=== PATIENT | female | born 1945 | race Caucasian/White ===

== ENCOUNTER 2017-11-29 11:41 | Emergency (ER) | payer MEDICARE, OTHER, SELFPAY ==
[2017-11-29 11:42] VITALS: BP 118/72; PULSE 76; RESP 16; TEMP 37.1; O2SAT 95; BMI 25.6
[2017-11-29 11:57] VITALS: O2SAT 97
[2017-11-29 12:20] LABS: Absolute Lymphocyte Count 1.77 X10^3/ul (0.83-4.51); Basophil# 0.03 X10^3/uL; Basophil% 0.4 % (0-1); Eosinophil# 0.12 X10^3/uL; Eosinophils% 1.6 % (0-5); Hematocrit 45.6 % (37-47); Hemoglobin 15.1 g/dl (12.0-15.0); Lymphocyte # 1.77 X10^3/ul (4.0); Lymphocyte % 23.3 % (19-41); Mean Corp Hgb Conc 33.1 g/gl (32-36); Mean Corpuscular Hgb 30.4 pg (27.0-32.0); Mean Corpuscular Volume 91.9 fL (81-99); Mean Platelet Vol. 10.1 fl (6.2-12.0); Monocyte# 0.63 X10^3/uL; Monocyte% 8.3 % (0-10); Neutrophil # 5.04 X10^3/uL (2.7-7.7); Neutrophil % 66.3 % (47-70); POSITIVE COUNT NO; POSITIVE DIFFERENTIAL NO; POSITIVE MORPHOLOGY NO; Platelet Count 242 K/mm3 (150-450); RBC Distribution Width CV 13.2 % (11.6-14.6); RBC Distribution Width SD 43.8 fl (35.1-43.9); Red Blood Count 4.96 M/mm3 (4.2-5.4); White Blood Count 7.6 K/mm3 (4.4-11.0)
[2017-11-29 12:36] LABS: Anion Gap 10 (5-15); BUN 16 mg/dL (7-18); BUN/Creat Ratio 17.1 RATIO (10-20); Calcium,Total 9.4 mg/dL (8.5-10.1); Chloride 105 mmol/L (98-107); Creatinine, Serum 0.93 mg/dL (0.55-1.02); EST Glomerular Filtration Rate 63 mL/min (>60); Est Glom Filt Rate - Afr Amer 76 mL/min (>60); Glucose 83 mg/dL (74-106); Potassium 4.7 mmol/L (3.5-5.1); Sodium Level 139 mmol/L (136-145)
[2017-11-29] MEDS: 0.9% Normal Saline 1,000 ML 1000 ML IV (12:55)
[2017-11-29 12:56] VITALS: BP 112/70; PULSE 80; RESP 14; O2SAT 98
[2017-11-29 13:28] VITALS: BP 108/70; PULSE 75; RESP 14; O2SAT 98
--- NOTE | 2017-11-29 13:46 | ED.VISSUMM ---
- ER Visit Summary Date of Service: 11/29/17 Chief Complaint: Chest pain History of Present Illness: The patient is a 72 F with history of chest pain that lasted about 3 hours yesterday was sharp and stabbing, she did have some lightheadedness today. She had a history of cataract surgery 3 days ago which she received Versed. Pain does not radiate to her back. She has no calf pain or swelling, she has no pleuritic component. She has no fever or chills. Physical Examination: Not appear in acute distress. Dry mucous membranes, no obvious facial deformity No C-spine tenderness supple neck. Regular rate and rhythm without any obvious murmurs Clear lungs bilaterally speaking in full sentences without any obvious respiratory distress Abdomen soft and nontender no guarding or rebound Moves all extremities without any difficulty or pain. Skin does not show any obvious rashes or lesions, no trauma. Alert oriented ?3 with no gross focal deficit Emergency Department Course and Treatment: Has a cardiac workup which is negative. She has no PE risk factors. Her heart score is a 3 and is low risk for cardiac events. She did have slightly dry mucous membranes and her symptoms did improve after IV fluids. We will discharge her with reassurance and prompt follow-up with her PCP. Discharge stable condition Impression: Nonspecific chest pain Dehydration This note was generated with Track dictation software. It may contain incorrect words, spelling, and punctuation that were not noted in review of the chart prior to signing ED Disposition - Plan for ED Patient: Disposition: Home or Assisted Living Chief Complaint: Shortness of Breath Instructions: ED Chest Pain Atypical Unkn Cause, Dehydration Referrals: Jessenia Spring MD [Primary Care Provider] - 3-5 Days
== END 2017-11-29 13:56 | disposition home or self-care (01) ==
PROVIDERS: Emergency Provider Emergency Medicine; Family Provider Internal Medicine; PCP Internal Medicine
DX: R07.9 Chest pain, unspecified (principal); E86.0 Dehydration; Z98.49 Cataract extraction status, unspecified eye; Z72.0 Tobacco use; F32.9 Major depressive disorder, single episode, unspecified
CPT/HCPCS: 71045; 80048; 84484; 85025; 93005; 96360; 99284; J7030; A4216

== ENCOUNTER → 2020-06-27 13:22 | Outpatient (CLI) | payer MEDICARE, OTHER, SELFPAY ==
[2020-06-27 13:42] LABS: D-Dimer Quantitative (DVT/PE) 0.39 FEU/ug/m (0.27-0.49)
== END ==
PROVIDERS: PCP Internal Medicine; Referring Provider Registered Nurse; Visit Provider Registered Nurse
DX: R06.02 Shortness of breath (principal)
CPT/HCPCS: 85379

== ENCOUNTER 2020-12-27 10:49 | Day surgery (SDC) | payer MEDICARE, OTHER, SELFPAY ==
--- NOTE | 2020-12-27 | GASB_PTH ---
PATIENT: TERI SHAY LOC: EN U#:[id number] AGE/SX: 75/F ROOM: RE12/27/[address]: Dr. Raymond Ramsay MD : 1945 BED: DIS: 12/27/2020 SPEC #: [id number] RECD: 12/27/20 14:45 STATUS: CANDACE OSMIN #: [id number] GREGORIO: 12/27/20 00:[address]: Raymond Ramsay DEPT: SURGICAL PATHOLOGY RECD BY: Shmuel Carter ENTERED: 12/28/20 07:56 SP TYPE: Gastric Bx OTHR DR: Dr. Jessenia Spring MD Tissues: Gastric mucous membrane Procedures: Surgery Specimen Level IV HEADER O[place] [place] DIAGNOSIS: GERD, epigastric pain TISSUE SUBMITTED: Antrum biopsy for histo and H. pylori MICROSCOPIC DIAGNOSIS Antrum biopsy: Mild gastritis. See microscopic description and comment. SJ:ileana 12/31/2020 COMMENT The results of immunohistochemistry for Helicobacter pylori will be reported separately ([id number]). MICROSCOPIC DESCRIPTION Slides are reviewed. The specimen shows fragments of gastric mucosa with chronic inflammatory cell infiltrates in the lamina propria consisting of lymphocytes and plasma cells, consistent with mild chronic gastritis. GROSS DESCRIPTION Received in fixative is one container labeled with the patient's name and designated antrum biopsy. The specimen consists of one irregular fragment of light gallardo soft tissue that measures 0.8 x 0.2 x 0.1 cm. The specimen is totally submitted in one cassette. / SJ:ileana 12/28/20 TC:3 CPT: 43668
[2020-12-27 11:13] VITALS: BP 140/81; PULSE 99; RESP 16; TEMP 36.2; O2SAT 100; BMI 24.0
[2020-12-27] MEDS: Lactated Ringers 1,000 ML 100 ML IV (11:34)
--- NOTE | 2020-12-27 12:00 | IMM_PTH ---
PATIENT: TERI SHAY LOC: EN U#:[id number] AGE/SX: 75/F ROOM: RE12/27/[address]: Dr. Raymond Ramsay MD : 1945 BED: DIS: 12/27/2020 SPEC #: [id number] RECD: 12/28/20 13:46 STATUS: CANDACE REQ #: [id number] GREGORIO: 12/27/20 12:[address]: Raymond Ramsay DEPT: IMMUNOHISTOCHEMISTRY RECD BY: Janet Carbajal ENTERED: 12/28/20 13:47 SP TYPE: IMMUNO OTHR DR: Dr. Jessenia Spring MD Tissues: Stomach, NOS Procedures: H Pylori (initial) PHYSICIAN & INSTITUTION [place] [id number] SPECIMEN INFORMATION: Tissue Source: Antrum biopsy Clinical Info: GERD, epigastric pain Specimen Number: [id number] CPT code: 04965 METHODOLOGY: Deparaffinized sections of prefer/formalin-fixed tissue or PAP/DQ stained slides are incubated with monoclonal/polyclonal antibodies/oligonucleotide probes. Localization is made via biotin free immunoperoxidase method. Appropriate controls are performed and reacted as expected. Results on target cell population are indicated in the following table: RESULTS: ANTIBODY / CLONE RESULT H Pylori (polyclonal) negative These tests were developed and their performance characteristics determined by [facility]. They may not have been cleared or approved by the U.S. Food and Drug Administration. The FDA has determined that such clearance or approval is not necessary. INTERPRETATION: Antrum biopsy: Negative for Helicobacter pylori organisms. FAN:ileana 12/31/2020
--- NOTE | 2020-12-27 12:07 | PCM.HP.BLA ---
History and Physical Date of Admission: 12/27/20 HISTORY AND PHYSICAL ? Swathi Alvarez 1945 ? ? REFERRING PHYSICIAN: Lavell Dudley MD ? CHIEF COMPLAINT: Consult ? HPI: The patient is a 75 year old female who presents with odynophagia and heartburn She has been recently diagnosed with right lung cancer and undergoing chemotherapy. She denies epigastric abdominal pain She had previous EGD on 05/23/2019, she was noted to have gastritis and H pylori was negative. She denies previous stomach ulcers, etc. ? ? PAST MEDICAL HISTORY Diagnosis Date ? Absence of menstruation ? ? Acute cystitis with hematuria 02/26/2017 ? Acute gastritis without mention of hemorrhage ? ? Anemia, unspecified ? ? Chronic depressive personality disorder ? ? 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 Diarrhea ? ? Displacement of lumbar intervertebral disc without myelopathy 03/31/2013 ? Endometrial polyp 07/27/2012 ? Esophageal reflux ? ? Family history of malignant neoplasm of gastrointestinal tract ? ? Family history of ovarian cancer 11/30/2009 ? Pt's mother ? Generalized osteoarthrosis, unspecified site ? ? Heel pain 07/25/2014 ? Impingement syndrome of right shoulder 07/18/2013 ? Internal hemorrhoids without mention of complication ? ? Lung cancer (HCC) 2020 ? Osteopenia ? ? Peptic ulcer, unspecified site, unspecified as acute or chronic, without mention of hemorrhage or perforation ? ? PMH - PAST MEDICAL HISTORY OF 09/2009 ? DCIS left breast ? Postmenopausal atrophic vaginitis 08/18/2006 ? Postmenopausal bleeding 07/06/2012 ? Pure hypercholesterolemia ? ? Recurrent UTI 05/31/2015 ? Right foot pain 07/25/2014 ? Snoring ? ? Trochanteric bursitis of left hip 07/17/2017 ? Unspecified hypothyroidism ? ? Urge incontinence 05/31/2015 ? Urinary frequency 05/31/2015 ? PAST SURGICAL HISTORY Procedure Laterality Date ? BIOPSY BREAST ? 1999 ? BRONCHOSCOPY ? 07/27/2020 ? CATARACT EXTRACTION HX Bilateral 2017 ? COLONOSCOP W/ OR W/O BRSH SPEC ? 03/07/2010 ? COLONOSCOP W/ OR W/O BRSH SPEC ? 11/24/2013 ? Colonoscopy ? COLONOSCOPY ? 2001 ? EGD ? 1994 ? EGD W/O BRSH SPECIMEN W/BX ? 03/07/2010 ? EGD W/O OR W/BRUSH/WASH ? 01/10/2016 ? EGD ? EGD W/O OR W/BRUSH/WASH ? 05/23/2019 ? EGD ? LAP VAG HYST <=250 G RMV T/O ? 04/19/2013 ? LAVH/BSO ? MASTECTOMY, PARTIAL ? 11/19/2009 ? Left NL PM ? MASTECTOMY, PARTIAL ? 02/06/2010 ? Left breast ? PAST SURGICAL HISTORY OF ? 1993 ? arthroscopis of right and left knees ? PAST SURGICAL HISTORY OF ? 2002 ? bilateral carpal tunnel surgery release ? PAST SURGICAL HISTORY OF ? 1988 ? thyroid nodules resected ? PAST SURGICAL HISTORY OF ? ~2006 ? pin placed in right arm ? PAST SURGICAL HISTORY OF Left 2015 ? 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 REMOVE TONSILS/ADENOIDS,<12 Y/O ? ? ? TOTAL KNEE REPLACEMENT ? 09/22/2005 ? Knee replacement, total, right ? TOTAL KNEE REPLACEMENT Left 08/07/2014 ? Knee replacement, total ? ? Current Outpatient Medications Medication Sig ? metoclopramide HCl (REGLAN) 10 mg tablet Take 1 tablet by mouth three times daily as needed (Nausea). ? osimertinib (TAGRISSO) 80 mg tablet Take 1 tablet (80 mg) by mouth once daily. ? cyanocobalamin, vitamin B-12, (VITAMIN B-12 ORAL) Take 1 tablet by mouth once daily. ? omeprazole (PRILOSEC) 40 mg capsule Take 1 capsule by mouth twice daily. ? levothyroxine (SYNTHROID) 50 mcg tablet take 1 & 1/2 tablets once a day ? trospium (SANCTURA) 20 mg tablet Take 1 tablet by mouth twice daily. ? venlafaxine ER (EFFEXOR XR) 150 mg 24 hr capsule Take 1 capsule by mouth once daily. ? fluticasone (FLONASE) 50 mcg/actuation nasal spray Use 2 Sprays in each nostril once daily. ? Cholecalciferol, Vitamin D3, 1,000 unit cap Take 1-2 capsules by mouth once daily. ? Calcium Carbonate-Vitamin D3 500 mg(1,250mg) -500 unit ORAL Tab Take one(1) tablet daily. ? ALLERGIES: Amoxicillin, Naproxen Sodium, and Lactose Intolerance (Lactase) [Lactase] ? PERSONAL HISTORY: Social History ? Tobacco Use ? Smoking status: Former Smoker ? ? Packs/day: 1.00 ? ? Years: 20.00 ? ? Pack years: 20.00 ? ? Types: Cigarettes ? ? Quit date: 03/30/1992 ? ? Years since quittin.7 ? Smokeless tobacco: Never Used ? Tobacco comment: Pt smoked on & off within 20 years. Substance Use Topics ? Alcohol use: Yes ? ? Alcohol/week: 12.5 - 15.0 standard drinks ? ? Types: 5 - 6 Glasses of Wine (5oz) per week ? ? Comment: Occasionally 4-5 drinks weekly ? Drug use: No ? FAMILY HISTORY Problem Relation Age of Onset ? Cancer Mother ? ? OVARIAN ? other (leukemia) Mother ? ? Coronary Artery Disease Father ? ? Colon Cancer Father ? ? other (CABG) Father ? ? other (bladder cancer) Father ? ? Prostate Cancer Brother ? ? other (low blood pressure) Sister ? ? Arthritis Maternal Grandfather ? ? Diabetes Maternal Grandfather ? ? Type 2, in 70's; tooka lot to get controlled ? other (congestive heart failure) Maternal Grandmother ? ? Alcohol/Drug Paternal Grandmother ? ? alchohol ? Alcohol/Drug Paternal Grandfather ? ? alchohol ? ? The review of systems data was entered by the nurse and reviewed by me ? Nursing Notes: Amanda Gray RN 12/07/2020 2:42 PM Signed REVIEW OF SYSTEMS: General: The patient NOTES fatigue, denies weight loss, denies weight gain, denies feeling hot, and denies feelings of cold. Eyes: The patient denies glaucoma, NOTES eye injury/surgery, wears glasses or contacts. Ear/Nose/Throat: The patient NOTES allergies, denies hayfever, denies ear infections, and denies bloody noses. Cardiovascular: The patient denies chest pain, denies heart disease, denies high blood pressure,denies cardiac stent, denies prior heart attack, denies irregular heart beat, denies high cholesterol, denies poor circulation, denies heart failure, other cardiac issues, denies claudication, NOTES cold feet, denies peripheral arterial stent. Respiratory: The patient denies tuberculosis, denies pneumonia, denies frequent cough, denies pulmonary embolism, denies shortness of breath, and denies coughing up blood. Gastrointestinal: The patient NOTES difficulty swallowing, NOTES acid reflux, denies ulcers, denies vomiting, denies jaundice/hepatitis, denies gallbladder problems, denies black or tarry stools, NOTES hemorrhoids, denies bleeding from rectum, denies diverticulitis, NOTES constipation, NOTES diarrhea, denies loss of stool control, and denies hernias. Kidney/Bladder: The patient denies kidney stones, NOTES urine infections, and denies bloody urine. Skin: The patient NOTES a history of skin cancer, denies bleeding/changing moles, and denies a history of skin rash. Neurologic: The patient denies a history of epilepsy/convulsions, denies headaches, denies head/spinal injuries, and denies stroke/TIA. Psychiatric: The patient denies psychiatric medications, NOTES depression, and denies voices, denies substance abuse. Endocrine: The patient denies thyroid disorders, denies diabetes, and denies hormonal problems. Hematologic: The patient denies a history of bruising, denies bleeding, and NOTES anemia, denies blood clots. Infections: The patient NOTES a history of measles and mumps, denies rheumatic fever, and denies sexually transmitted diseases. Musculoskeletal: The patient denies back pain/injury, denies back problems, NOTES sciatica, NOTES knee/foot trouble, NOTES arthritis, or denies gout. When was patient's last Mammogram screening? 2018, 2019 Last Colonoscopy: 11/14/2013 Amanda Gray RN ? ? PHYSICAL EXAMINATION: General: The patient is 75 year old female, well nourished, well hydrated in no acute distress. The patient is oriented to time, place, and person. VITALS: Blood pressure 120/64, pulse 118, temperature 36.7 ?C (98.1 ?F), temperature source Temporal Artery, weight 69.4 kg (153 lb), SpO2 93 %. Body mass index is 25.46 kg/m?. Head ? Normocephalic. EOM intact with sclera clear and no icterus noted. Neck - supple with no jugular venous distention noted. Trachea is midline. Lungs ? normal respiratory excursion. No labored breathing noted, such as retractions. No cough heard. Heart ? regular. Abdomen ? soft and benign Extremities ? no pitting edema noted. Skin ? normal skin integrity. Neurological ? gait normal, no focal deficits noted. Psych ? calm and appropriate ? ? Assessment IMPRESSION: odynophagia, heartburn ? PLAN: I have discussed the above with the patient. I have offered EGD possible biopsies. I have explained the procedure to the patient. I have counseled the patient as to the risks of the procedure, including but not limited to: infection, bleeding, perforation of the GI tract, injury to any intraabdominal organs such as the liver/spleen, inability to complete the procedure, complications of anesthesia, etc. ? the patient understands. The patient wishes to proceed. ? ? I have answered all questions to the patient?s satisfaction and the patient has no further questions. ? I have confirmed and edited as necessary, the PFSH and ROS obtained by others. ? Consultation requested by Dr. Dudley for an opinion regarding patient's presentation. My final recommendations will be communicated back to the requesting physician by way of shared Medical record or letter to requesting physician via US mail. ? . Diagnoses: (K22.8) Esophageal pain (primary encounter diagnosis) (R12) Heartburn Return to Clinic: The patient is instructed to follow-up after the procedure ? Medical Decision Making: ? Problems: Minimal: Self-limited or minor problem Risk: Low: Low risk from testing/treatment ? Medical Decision Making Level: 2 - Straightforward ? Erika Infante MD I have re-examined the patient. There are no clinical changes since date of exam.
--- NOTE | 2020-12-27 12:22 | OP.EGD_ITS ---
Patient Name: Swathi Alvarez Procedure Date: 12/27/2020 11:58 AM Date of : 1945 Age: 75 Procedure: Upper GI endoscopy Indications: Odynophagia, Heartburn Providers: Raymond Ramsay MD Medicines: See the Anesthesia note for documentation of the administered medications Patient Profile: This is a 75 year old female. Refer to note in patient chart for documentation of history and physical. Complications: No immediate complications. Estimated blood loss: Minimal. Procedure: Pre-Anesthesia Assessment: - Prior to the procedure, a History and Physical was performed, and patient medications and allergies were reviewed. The patient's tolerance of previous anesthesia was also reviewed. The risks and benefits of the procedure and the sedation options and risks were discussed with the patient. All questions were answered, and informed consent was obtained. Prior Anticoagulants: The patient has taken no previous anticoagulant or antiplatelet agents. ASA Grade Assessment: III - A patient with severe systemic disease. After reviewing the risks and benefits, the patient was deemed in satisfactory condition to undergo the procedure. After obtaining informed consent, the endoscope was passed under direct vision. Throughout the procedure, the patient's blood pressure, pulse, and oxygen saturations were monitored continuously. The gastroscope was introduced through the mouth, and advanced to the second part of duodenum. The upper GI endoscopy was accomplished without difficulty. The patient tolerated the procedure well. Scope In: 12:13:18 PM Scope Out: 12:15:54 PM Total Procedure Duration Time 0 hours 2 minutes 36 seconds Findings: The Z-line was regular and was found 39 cm from the incisors. No biopsies or other specimens were collected for this exam. The entire examined stomach was normal. Biopsies were taken with a cold forceps for Helicobacter pylori testing. The examined duodenum was normal. No biopsies or other specimens were collected for this exam. Impression: - Z-line regular, 39 cm from the incisors. No specimens collected. - Normal stomach. Biopsied. - Normal examined duodenum. No specimens collected. Recommendation: - Discharge patient to home. - Resume previous diet. - Continue present medications. - Await pathology results. - Repeat upper endoscopy PRN for surveillance. - Return to referring physician in 1 week. - Refer to an ENT specialist at the next available appointment. Procedure Code(s): --- Professional --- 88826, Esophagogastroduodenoscopy, flexible, transoral; with biopsy, single or multiple Diagnosis Code(s): --- Professional --- R13.10, Dysphagia, unspecified R12, Heartburn CPT copyright 2017 [employer]. All rights reserved. The codes documented in this report are preliminary and upon environmental research scientist review may be revised to meet current compliance requirements. MD Raymond Soler MD 12/27/2020 12:21:58 PM This report has been signed electronically. Number of Addenda: 0 Note Initiated On: 12/27/2020 11:58 AM
--- NOTE | 2020-12-27 12:22 | OP.CCLET_ITS ---
12/27/2020 Jessenia Spring [address] [place] [address] Re : Upper GI endoscopy procedure for Swathi Alvarez Dear Dr. Spring This procedure was performed on November. My impressions and recommendations are as follows: Impressions : - Z-line regular, 39 cm from the incisors. No specimens collected. - Normal stomach. Biopsied. - Normal examined duodenum. No specimens collected. Recommendations : - Discharge patient to home. - Resume previous diet. - Continue present medications. - Await pathology results. - Repeat upper endoscopy PRN for surveillance. - Return to referring physician in 1 week. - Refer to an ENT specialist at the next available appointment. My findings are described in the full procedure note, which is enclosed. If I can be of further assistance, please feel free to contact me at Doctor phone number(s): , Work: . Sincerely, MD Raymond Soler MD 12/27/2020 12:21:58 PM This report has been signed electronically.
[2020-12-27 12:24] VITALS: BP 108/82; BP 140/81; PULSE 88; RESP 20; TEMP 36.8; O2SAT 99
[2020-12-27 12:30] VITALS: BP 107/64; BP 140/81; PULSE 81; RESP 20; O2SAT 96
[2020-12-27 12:35] VITALS: BP 120/64; BP 140/81; PULSE 81; RESP 20; O2SAT 97
[2020-12-27 12:41] VITALS: BP 119/68; BP 140/81; PULSE 75; RESP 18; TEMP 36.3; O2SAT 100
[2020-12-27 13:16] VITALS: BP 140/81
== END 2020-12-27 13:16 ==
LOC: EN 10:51 → AC 10:53
PROVIDERS: PCP Internal Medicine; Referring Provider Internal Medicine; Visit Provider Surgery
PROC: 0DJ08ZZ Inspection of Upper Intestinal Tract, Via Natural or Artificial Opening Endoscopic (ICD-10-PCS; CPT 43235; principal; 2020-12-27 11:55)
DX: K29.70 Gastritis, unspecified, without bleeding (principal); R13.10 Dysphagia, unspecified; C34.90 Malignant neoplasm of unspecified part of unspecified bronchus or lung; K21.9 Gastro-esophageal reflux disease without esophagitis; E78.00 Pure hypercholesterolemia, unspecified; E03.9 Hypothyroidism, unspecified; M85.80 Other specified disorders of bone density and structure, unspecified site; Z82.49 Family history of ischemic heart disease and other diseases of the circulatory system; Z82.61 Family history of arthritis; Z83.3 Family history of diabetes mellitus; Z87.11 Personal history of peptic ulcer disease; Z87.440 Personal history of urinary (tract) infections; Z87.19 Personal history of other diseases of the digestive system; Z87.891 Personal history of nicotine dependence; Z88.0 Allergy status to penicillin; Z90.722 Acquired absence of ovaries, bilateral; Z96.653 Presence of artificial knee joint, bilateral
CPT/HCPCS: 43239; 88305; 88342; J7120

== ENCOUNTER 2021-09-16 11:57 | Emergency (ER) | payer MEDICARE, OTHER, SELFPAY ==
[2021-09-16 11:58] VITALS: BP 125/75; PULSE 103; RESP 18; TEMP 36.2; O2SAT 97; BMI 22.8
[2021-09-16 12:25] VITALS: PULSE 73; RESP 16; O2SAT 98
--- NOTE | 2021-09-16 12:58 | EKG12_ITS ---
Test Reason : SOB Blood Pressure : / mmHG Vent. Rate : 075 BPM Atrial Rate : 075 BPM P-R Int : 118 ms QRS Dur : 078 ms QT Int : 386 ms P-R-T Axes : 049 026 028 degrees QTc Int : 431 ms Normal sinus rhythm Low voltage QRS (Limb Leads) Confirmed by EMMO AC, CHAU ([id number]), brands editor TIFFANIE MANUEL ([id number]) on 09/17/2021 9:01:56 AM Referred By: XAVIER Confirmed By:CHAU HAMPTON MD
--- NOTE | 2021-09-16 13:16 | EDS_ITS ---
HPI History of Present Illness Chief Complaint: Shortness of Breath Onset/Context/Timing Onset: Days Context: gradual Timing: Intermittent Quality: Positive for Dyspnea on exertion; Negative for Orthopnea, PND or Wheezing Current Severity: Mild Maximum Severity: Moderate Worsened by: Exertion Relieved by: Rest Associated Symptoms cough Chest Pain: Positive for None Narrative Narrative: 76-year-old female history of prior breast cancer and lung cancer for which she is currently under therapy but is in remission. States uncharacteristically for the last 3 and half days she has been short of breath with exertion. Denies any chest pain. Denies any fever or chills. She has a nonproductive cough. Took COVID test last night at home that was negative. She denies any history of DVT or PE. No recent travel, surgery or immobilization. No hemoptysis. No pleuritic chest pain. No leg pain or swelling. She says when she walks her dog she has to go much more slowly last several days and has more shortness of andrea ath with walking steps. She would have to stop. But no chest pain whatsoever. No fever or chills. PE Risk Factors: Positive for Cancer; Negative for OCP + Smoking + > 35, Prior DVT or PE, Recent immobilization, Recent surgery or Recent travel Prior similar symptoms: No Recent Illness/Hospitalization: No PFSH PFSH Medical History Alcohol use Anemia Arthritis Back pain Cancer Cardiology follow-up encounter Depression Former smoker Gastric reflux High cholesterol Hypothyroidism Normal stress echocardiogram Shortness of breath on exertion Thyroid disease Home Medications Venlafaxine Xr [Effexor Xr] 75 mg PO DAILY 04/11/13 [History Last Taken Unknown] cholecalciferol (vitamin D3) 50 mcg (2,000 unit) tablet (Vitamin D3) 2,000 unit PO DAILY 04/11/13 [History Last Taken Unknown] fluticasone propionate 50 mcg/actuation nasal spray,suspension 2 spray DAILY 04/11/13 [History Last Taken Unknown] levothyroxine 75 mcg tablet 75 mcg PO DAILY 04/11/13 [History Last Taken 04/19/13 05:25 75 MCG] omeprazole 20 mg capsule,delayed release 20 mg PO DAILY 04/11/13 [History Last Taken 04/19/13 05:25 20 MG] tolterodine 2 mg capsule,extended release 24 hr 2 mg PO BID 06/06/15 [History Last Taken Unknown] osimertinib 40 mg tablet (Tagrisso) 40 mg PO DAILY 12/24/20 [History Last Taken 12/27/20] apixaban 5 mg (74 tabs) tablets in a dose pack (Eliquis DVT-PE Treat 30D Start) 5 mg PO BID 30 days #60 tabs 09/16/21 [Rx Last Taken Unknown] Allergy/AdvReac Type Severity Reaction Status Date / Time amoxicillin [Amoxicillin] Allergy Other Verified 09/16/21 12:00 naproxen Allergy Other Verified 09/16/21 12:00 Surgical History History of hysteroscopy History of lumpectomy of left breast History of total left knee replacement History of total right knee replacement Hx of dilation and curettage Social History Smoking Status: Former smoker ROS ROS ED ROS Narrative Shortness of breath. Review of Systems ROS Unobtainable: Denies due to encephalopathy Constitutional Constitutional ED: Denies chills Eyes Eyes: Denies blurry vision ENT ENT ED: Denies ear pain Cardiovascular Cardiovascular: Denies chest pain or palpitations Respiratory/Chest Respiratory/Chest: Reports cough and dyspnea Gastrointestinal Gastrointestinal: Denies abdominal pain, constipation or diarrhea Genitourinary Genitourinary ED: Denies dysuria or hematuria Musculoskeletal Musculoskeletal: Denies arthralgias Integumentary Denies abscess Neurologic Neurologic: Denies headache(s) Endocrine Endocrinology: Denies cold intolerance Hematologic/Lymphatic Hematologic/Lymphatic: Denies easy bleeding Allergic/Immunologic Allergic/Immunologic ED: Denies mouth swelling EXAM Physical Exam Narrative Exam Narrative: We will Female no acute distress. Vital signs stable afebrile. Pulse ox 90% on room air no hypoxia. H EENT exam unremarkable. Moist mucous membranes. Neck nontender. No JVD. Lungs clear to auscultation bilaterally. Heart regular rhythm no murmur. Rate about 75. Sinus rhythm on the monitor. Abdomen soft nontender. Moving all 4 extremities. Calves are nontender without edema or cords. Neurologic exam unremarkable. Const Vital Signs: 09/16/21 11:58 09/16/21 12:25 09/16/21 12:25 Temperature 97.1 F L Temperature Source Temporal Pulse Rate 103 H 73 Respiratory Rate 18 16 Respiratory Effort Normal Respiratory Depth Normal Respiratory Pattern Normal Blood Pressure 125/75 H Blood Pressure Mean 91 Pulse Ox 97 98 Oxygen Delivery Method Room Air Room Air Room Air 09/16/21 15:35 09/16/21 15:35 Temperature Temperature Source Pulse Rate 73 Respiratory Rate 18 Respiratory Effort Respiratory Depth Respiratory Pattern Blood Pressure 120/66 Blood Pressure Mean 84 Pulse Ox 98 99 Oxygen Delivery Method Room Air Room Air Positive well nourished and well developed; Negative for obese, cachectic, contractures or unkempt General Appearance ED: well developed; Negative for unkempt, cachectic, contractures or pallor Nutritional Appearance: Negative for cachectic or obese HEENT Reports moist mucous membranes; Denies dry mucous membranes atraumatic; Negative for trauma or tenderness Mouth ED: No dry mucous membranes Mouth: No dry mucous membranes Eyes PERRL and EOMs intact bilaterally General Eye ED: Negative for pale conjunctiva or scleral icterus Neck no lymphadenopathy, supple, no meningeal signs and no JVD General: Negative for tenderness Resp normal respiratory effort and clear to auscultation bilaterally Effort and Inspection: Negative for pain with movement Auscultation: Negative for rales, rhonchi, wheezes or diminished lung sounds Cardio regular rate, regular rhythm, S1 normal heart sound, S2 normal heart sound and no murmurs Rate: Negative for bradycardia Rhythm: Negative for abnormal rhythm GI non-tender, non-distended and no masses Inspection: Negative for other Auscultation: normoactive bowel sounds; Negative for hyperactive bowel sounds or hypoactive bowel sounds Palpation: soft; Negative for tender, guarding or hepatomegaly Back/Spine no CVA tenderness and normal to inspection General Back: Negative for CVA tenderness or tenderness Extremity normal to inspection General Extremety ED: Negative for edema or tenderness General Extremity: Negative for edema Neuro oriented x3 and CN's II-XII intact bilaterally Sensorium / Orientation: alert, oriented to person, oriented to place and oriented to time; Negative for orientation impaired, confused, lethargic or stup orous Motor Exam: strength 5/5 throughout Psych mental status grossly normal Appearance: Negative for unkempt Attitude: No agitated Mood & Affect: Negative for depressed Thought Process: normal thought process Skin no wounds General Skin Exam: Negative for jaundice or pallor Lesions: no lesions Rashes: no rashes Trauma: Negative for abrasion MDM MDM MDM Narrative Medical decision making narrative: 76-year-old female with exertional shortness of breath. No cardiac history. History of lung and or prior breast cancer. No history of DVT. Undergo a cardiac work-up with a D-dimer and a COVID test. Repeat exam patient doing well at 3:35 PM. We went over all of her test results. She will be started on the blood thinner Eliquis. Discharged to home. Follow-up with her primary. Return if worse. Lab Data Attestation: I reviewed the patient's lab results. Lab results narrative: CBC normal white count of 6. H&H 13 and 41. Platelets are low at 133. D-dimer elevated 3.36. So a CTA of the chest to be obtained. Electrolytes unremarkable gap of 4. Normal BUN and creatinine. Glucose 84. Troponin 4. CT of the chest as read by the radiologist shows bilateral lower lobe pulmonary emboli. Labs: Laboratory Results - last 24 hr 09/16/21 09/16/21 09/16/21 13:36 13:36 13:36 WBC 6.0 RBC 4.49 Hgb 13.6 Hct 41.8 MCV 93.1 MCH 30.3 MCHC 32.5 RDW Std Deviation 47.7 H RDW Coeff of Mihaela 13.9 Plt Count 133 L MPV 9.6 Immature Gran % (Auto) 0.300 Neut % (Auto) 72.4 H Lymph % (Auto) 13.9 L [place] % (Auto) 11.0 H Eos % (Auto) 1.7 Baso % (Auto) 0.7 Absolute Neuts (auto) 4.3 Absolute Lymphs (auto) 0.83 Nucleated RBC % 0 D-Dimer Quant (PE/DVT) 3.36 H* Sodium 140 Potassium 4.1 Chloride 108 H Carbon Dioxide 28.0 Anion Gap 4 L BUN 14 Creatinine 0.76 Estim Creat Clear Calc 43.07 Est GFR (MDRD) Af Amer 95 Est GFR (MDRD) Non-Af 78 BUN/Creatinine Ratio 18.3 Glucose 84 Calcium 9.4 Troponin I High Sens 4 Radiography Chest X-Ray - ED: 1 View, Read by ED Physician, Read by Radiologist, Heart, Lungs, Mediastinum, Bony Structures, No Acute Disease and Chronic Changes Diagnostic Testing: Clinical Impression(s) from Imaging Studies Chest X-Ray 09/16/21 13:20 IMPRESSION: Question of a spiculated right suprahilar mass. Follow-up CT chest recommended. Electronically Signed: Ciro Luque MD at 13:49 EDT , Chest CTA 09/16/21 14:13 IMPRESSION: 1. Acute bilateral lower lobe pulmonary embolism without evidence of right heart strain. 2. Stable 8 mm right lower lobe pulmonary nodule. 3. Stable nodular pleural plaquing involving both lung apices. 4. Atelectasis/scarring of the right upper lobe. N.B. : The above Results were Read Back by Ciro Luque MD to Dr. Marcelo Stevenson MD, MD, and understanding confirmed on 09/16/2021 15:19:24 (ET). Electronically Signed: Ciro Luque MD at 15:21 EDT , ADDENDUM: 09/16/21 1528 IMPRESSION: 1. Acute bilateral lower lobe pulmonary embolism without evidence of right heart strain. 2. Stable 8 mm right lower lobe pulmonary nodule. 3. Stable nodular pleural plaquing involving both lung apices. 4. Atelectasis/scarring of the right upper lobe. N.B. : The above Results were Read Back by Ciro Luque MD to Dr. Marcelo Stevenson MD, MD, and understanding confirmed on 09/16/2021 15:19:24 (ET). Electronically Signed: Ciro Luque MD at 15:21 EDT , Chest x-ray, portable shows no acute process. There is a questionable right hilar mass. Due to her D-dimer were obtaining a CTA which also help evaluate the right hilar area. This was read both by shirleyelf and the radiologist. Discharge Plan Triage Chief Complaint: Shortness of Breath ED Provider: Neel Stevenson Dx/Rx/DC Orders Clinical Impression: Acute dyspnea, Breast cancer, Pulmonary embolism, bilateral Instructions: Pulmonary Embolism Prescriptions: New Eliquis DVT-PE Treat 30D Start 5 mg (74 tabs) tablets,dose pack 5 mg PO BID 30 Days Qty: 60 0RF No Action levothyroxine 75 MCG tablet 75 mcg PO DAILY Label Comments: THYROID omeprazole 20 MG capsule 20 mg PO DAILY Label Comments: ACID REFLUX fluticasone propionate 1 SPRAY spray,suspension 2 spray NASAL DAILY Label Comments: NASAL CONGESTION cholecalciferol (vitamin D3) [Vitamin D3] 2,000 UNIT tablet 2,000 unit PO DAILY Label Comments: SUPPLEMENT Venlafaxine Xr [Effexor Xr] 75 MG capsule 75 mg PO DAILY Label Comments: DEPRESSION tolterodine 2 MG capsule,extended release 24hr 2 mg PO BID Label Comments: bladder Tagrisso 40 mg Tablet 40 mg PO DAILY Primary Care Provider: Jessenia Spring Referrals: Jessenia Spring MD [Primary Care Provider] - Activity Restrictions/Additional Instructions: Your labs, chest x-ray and EKG were normal. The CAT scan showed that you had blood clots in your lower lungs on both sides. Due to the blood clot she will be started on the blood thinner Eliquis. Follow- up with your doctor they may need to continue the prescription. And no need to be reevaluated. If you hit your head while on the blood thinner you need to be evaluated. If you have any significant signs of heavy bleeding and need to be evaluated. Disposition Disposition: Home, Self Care
--- NOTE | 2021-09-16 13:20 | RAD_ITS ---
EXAM: XR CHEST, 1 VIEW CLINICAL INDICATION: chest pain TECHNIQUE: Frontal view of the chest. This report was created using [employer] report generation technology. COMPARISON: November 29, 2017 FINDINGS: LUNGS AND PLEURAL SPACES: Interval development of right suprahilar pulmonary infiltrate or mass. Follow-up CT chest recommended. No pneumothorax. No effusion. HEART: Unremarkable. Normal heart size. MEDIASTINUM: Central airways and mediastinal contour are unremarkable. BONES/JOINTS: Unremarkable. SOFT TISSUES: Surgical clips on the left again noted related to prior breast surgery. UPPER ABDOMEN: Density projecting over the medial portion of the left hemidiaphragm again noted suggestive of a Bochdalek hernia. RAD/Chest 1 View (Portable) IMPRESSION: Question of a spiculated right suprahilar mass. Follow-up CT chest recommended. Electronically Signed: Ciro Luque MD at 13:49 EDT Reading Location ID and State: [facility] / [place] Tel , Service support ,
[2021-09-16 13:45] LABS: Absolute Lymphocyte Count 0.83 X10^3/uL (0.83-4.51); Absolute Neutrophil Count 4.3 X10^3/uL (2.0-7.7); Basophil# 0.04 X10^3/uL; Basophil% 0.7 % (0-1); Eosinophils% 1.7 % (0-5); Hematocrit 41.8 % (37-47); Hemoglobin 13.6 g/dL (12.0-15.0); Lymphocyte # 0.83 X10^3/ul (0.83-4.51); Lymphocyte % 13.9 % (19-41); Mean Corp Hgb Conc 32.5 g/dL (32-36); Mean Corpuscular Hgb 30.3 pg (27.0-32.0); Mean Corpuscular Volume 93.1 fL (81-99); Mean Platelet Vol. 9.6 fl (6.2-12.0); Monocyte# 0.66 X10^3/uL; NRBC Flagged by Analyzer 0 % (0-5); Neutrophil # 4.34 X10^3/uL (2.7-7.7); Neutrophil % 72.4 % (47-70); POSITIVE COUNT YES; Platelet Count 133 K/mm3 (150-450); RBC Distribution Width CV 13.9 % (11.6-14.6); RBC Distribution Width SD 47.7 fl (35.1-43.9); Red Blood Count 4.49 M/mm3 (4.2-5.4)
[2021-09-16 13:47] LABS: Differential Indicated SCAN CRITERIA MET
[2021-09-16 13:54] LABS: D-Dimer Quantitative (DVT/PE) 3.36 FEU/ug/m (0.27-0.49)
[2021-09-16 14:01] LABS: Anion Gap 4 (5-15); BUN 14 mg/dL (7-18); BUN/Creat Ratio 18.3 RATIO (10-20); Calcium,Total 9.4 mg/dL (8.5-10.1); Chloride 108 mmol/L (98-107); Creatinine, Serum 0.76 mg/dL (0.55-1.02); EST Glomerular Filtration Rate 78 mL/min (>60); Est Glom Filt Rate - Afr Amer 95 mL/min (>60); Estimated Creatinine Clearance 43.07 ml/min; Glucose 84 mg/dL (74-106); Potassium 4.1 mmol/L (3.5-5.1); Sodium Level 140 mmol/L (136-145); Troponin-I HS 4 pg/mL (3.0-54.0)
--- NOTE | 2021-09-16 14:13 | CT_ITS ---
EXAM: CT ANGIOGRAPHY CHEST WITHOUT AND WITH INTRAVENOUS CONTRAST CLINICAL INDICATION: dyspnea TECHNIQUE: Helically acquired angiography images were obtained of the chest without and with intravenous contrast. This CT exam was performed using one or more of the following dose reduction techniques: automated exposure control, adjustment of the mA and/or kV according to patient size, and/or use of iterative reconstruction technique. This report was created using [employer] report generation technology. MIP reconstructed images were created and reviewed. CONTRAST: IV 100mL [id number] COMPARISON: Chest radiograph 09/16/2021, CTA chest October 06, 2015 FINDINGS: PULMONARY ARTERIES: See below. AORTA: Unremarkable. Normal in caliber. No evidence of dissection. GREAT VESSELS OF AORTIC ARCH: Unremarkable. Normal in caliber. No evidence of dissection. LUNGS AND PLEURAL SPACES: Filling defects are noted within the lower lobe pulmonary artery branches bilaterally. Area of atelectasis or scarring involves the right upper lobe lung adjacent to the mediastinum. Pleural plaquing again noted along both lung apices. Stable 8 mm right lower lobe pulmonary nodule. No pneumothorax. HEART: No evidence of right heart strain. No pericardial effusion. MEDIASTINUM: Unremarkable. No mediastinal or hilar adenopathy. Esophagus is unremarkable. No hiatal hernia. THYROID: Unremarkable. No thyroid lesions. BONES/JOINTS: Unremarkable. No suspicious lytic or blastic abnormality. Stable left Bochdalek hernia. CT/CTA Chest W/WO Contrast IMPRESSION: 1. Acute bilateral lower lobe pulmonary embolism without evidence of right heart strain. 2. Stable 8 mm right lower lobe pulmonary nodule. 3. Stable nodular pleural plaquing involving both lung apices. 4. Atelectasis/scarring of the right upper lobe. N.B. : The above Results were Read Back by Ciro Luque MD to Dr. Marcelo Stevenson MD, MD, and understanding confirmed on 09/16/2021 15:19:24 (ET). Electronically Signed: Ciro Luque MD at 15:21 EDT ,
[2021-09-16 15:35] VITALS: BP 120/66; PULSE 73; RESP 18; O2SAT 98; O2SAT 99
[2021-09-16 16:02] VITALS: BP 132/72; PULSE 76; RESP 15; O2SAT 99
== END 2021-09-16 16:03 | disposition home or self-care (01) ==
PROVIDERS: Emergency Provider Emergency Medicine; PCP Internal Medicine; Visit Provider Emergency Medicine
DX: R06.00 Dyspnea, unspecified (principal); I26.99 Other pulmonary embolism without acute cor pulmonale; C50.919 Malignant neoplasm of unspecified site of unspecified female breast; E78.00 Pure hypercholesterolemia, unspecified; Z87.891 Personal history of nicotine dependence; E03.9 Hypothyroidism, unspecified; K21.9 Gastro-esophageal reflux disease without esophagitis
CPT/HCPCS: 71045; 71275; 80048; 84484; 85025; 85379; 87811; 93005; 99284; Q9967; A4216

== ENCOUNTER 2023-06-12 14:40 | Emergency (ER) | payer MEDICARE, OTHER, SELFPAY ==
[2023-06-12] VITALS (8 sets, daily range): BP systolic 115–144; BP diastolic 61–74; PULSE 65–98; RESP 16–20; TEMP 36.1–37; O2SAT 93–100; BMI 24.7
--- NOTE | 2023-06-12 16:12 | ED.RN ---
unable to complete sepsis screen due to busy triage
--- NOTE | 2023-06-12 17:24 | ED.VIS.DYS ---
HPI History of Present Illness Chief Complaint: Shortness of Breath Detail of Chief Complaint: Shortness of breath that started approximately 2 weeks ago and got worse la Informant: patient Onset/Context/Timing Onset: Weeks Context: gradual (Then became noticeably worse over the last 24 to 48 hours) Timing: Continuous and Waxes and wanes Quality: Positive for Dyspnea on exertion; Negative for Orthopnea, PND or Wheezing Current Severity: Mild Maximum Severity: Severe Worsened by: - (Walking across the room) Relieved by: Nothing Associated Symptoms Negative for cough, rhinorrhea, post nasal drip, ear pain, fever, sore throat, subjective, chills, sweats, clear sputum, white sputum, yellow sputum or green sputum Chest Pain: Positive for None Narrative Narrative: Patient is a 77-year-old woman with prior history of PE 1.5 years ago. She was on Eliquis. Her prescription ran out. She uses a mail order service because it is significantly cheaper. She has not taken a dose of Eliquis for 1.5 to 2 weeks. This about the time her dyspnea began. She also reported dizziness. She could not define this as a spinning sensation or lightheadedness. She denies problems with coordination or balance. Denies problems with speech or swallowing. She denies paresthesia, anesthesia or motor weakness. She denies leg pain, swelling discoloration. She does have history of inoperable lung cancer. She is on immunotherapy for that. She reports change in vision and has had problems with vision intermittently for the past 3 years since placed on the immuno therapy. This is a known side effect of the medication. She denies fever, chills night sweats. Denies headache. She denies decreased hearing. She has chronic tinnitus. She denies rhinorrhea, congestion postnasal drainage. Denies sore throat. Denies abdominal pain, nausea, vomiting or diarrhea. Denies black or maroon-colored stool. She denies urologic symptoms. PE Risk Factors: Positive for Cancer and Prior DVT or PE; Negative for OCP + Smoking + > 35, Recent immobilization, Recent surgery or Recent travel Prior similar symptoms: No Recent Illness/Hospitalization: No PFSH PFSH Medical History Alcohol use Anemia Arthritis Back pain Cancer Cardiology follow-up encounter Depression Former smoker Gastric reflux High cholesterol Hypothyroidism Normal stress echocardiogram Shortness of breath on exertion Thyroid disease Home Medications Venlafaxine Xr [Effexor Xr] 75 mg PO DAILY 04/11/13 [History Last Taken Unknown] cholecalciferol (vitamin D3) 50 mcg (2,000 unit) tablet (Vitamin D3) 2,000 unit PO DAILY 04/11/13 [History Last Taken Unknown] fluticasone propionate 50 mcg/actuation nasal spray,suspension 2 spray DAILY 04/11/13 [History Last Taken Unknown] levothyroxine 75 mcg tablet 75 mcg PO DAILY 04/11/13 [History Last Taken 04/19/13 05:25 75 MCG] omeprazole 20 mg capsule,delayed release 20 mg PO DAILY 04/11/13 [History Last Taken 04/19/13 05:25 20 MG] tolterodine 2 mg capsule,extended release 24 hr 2 mg PO BID 06/06/15 [History Last Taken Unknown] osimertinib 40 mg tablet (Tagrisso) 40 mg PO DAILY 12/24/20 [History Last Taken 12/27/20] apixaban 5 mg (74 tabs) tablets in a dose pack (Eliquis DVT-PE Treat 30D Start) 5 mg PO BID 30 days #60 tabs 09/16/21 [Rx Last Taken Unknown] Allergy/AdvReac Type Severity Reaction Status Date / Time amoxicillin [Amoxicillin] Allergy Other Verified 06/12/23 14:42 naproxen Allergy Other Verified 06/12/23 14:42 Surgical History History of hysteroscopy History of lumpectomy of left breast History of total left knee replacement History of total right knee replacement Hx of dilation and curettage Social History Smoking Status: Former smoker ROS ROS ED Constitutional Constitutional ED: Denies chills, fever(s), sweats or weight loss Eyes Eyes: Reports blurry vision bilateral (Chronic due to medication); Denies diplopia ENT ENT ED: Denies ear pain, rhinorrhea or sore throat Cardiovascular Cardiovascular: Denies chest pain, orthopnea, palpitations, paroxysmal nocturnal dyspnea or racing heartbeat Respiratory/Chest Respiratory/Chest: Reports dyspnea and dyspnea on exertion; Denies cough, orthopnea, paroxysmal nocturnal dyspnea or sputum Gastrointestinal Gastrointestinal: Denies diarrhea, melena, nausea or vomiting Musculoskeletal Musculoskeletal: Denies arthralgias, back pain or myalgias Neurologic Neurologic: Denies headache(s), paresthesias or weakness Hematologic/Lymphatic Hematologic/Lymphatic: Denies easy bleeding or easy bruising EXAM Physical Exam Const Vital Signs: 06/12/23 14:40 06/12/23 14:42 06/12/23 17:20 Temperature 97.6 F L 97.6 F L Temperature Source Temporal Temporal Pulse Rate 98 98 Respiratory Rate 17 17 Respiratory Effort Respiratory Depth Respiratory Pattern Blood Pressure 115/67 115/67 Blood Pressure Mean 83 83 Pulse Ox 100 100 99 Oxygen Delivery Method Room Air Room Air Room Air Fraction of Inspired Oxygen (FIO2) 06/12/23 17:20 06/12/23 17:20 06/12/23 18:00 Temperature 97.6 F L 96.9 F L Temperature Source Oral Temporal Pulse Rate 85 69 Respiratory Rate 20 H 18 Respiratory Effort Normal Respiratory Depth Normal Respiratory Pattern Normal Blood Pressure 121/61 H 117/74 Blood Pressure Mean 81 88 Pulse Ox 98 98 Oxygen Delivery Method Room Air Room Air Fraction of Inspired Oxygen (FIO2) 94 06/12/23 19:00 06/12/23 20:00 06/12/23 21:00 Temperature 97.6 F L 97.2 F L 98.6 F Temperature Source Temporal Temporal Temporal Pulse Rate 68 65 87 Respiratory Rate 19 H 18 16 Respiratory Effort Respiratory Depth Respiratory Pattern Blood Pressure 130/73 H 144/73 H 127/70 H Blood Pressure Mean 92 96 89 Pulse Ox 98 96 99 Oxygen Delivery Method Room Air Room Air Room Air Fraction of Inspired Oxygen (FIO2) 06/12/23 22:00 Temperature 97.3 F L Temperature Source Temporal Pulse Rate 67 Respiratory Rate 16 Respiratory Effort Respiratory Depth Respiratory Pattern Blood Pressure 126/70 H Blood Pressure Mean 88 Pulse Ox 93 Oxygen Delivery Method Room Air Fraction of Inspired Oxygen (FIO2) Positive well nourished and well developed General Appearance ED: well developed and NAD; Negative for pallor HEENT Reports moist mucous membranes HEENT Narrative: Head is atraumatic and normocephalic. Ears normal. Nares patent. Posterior pharynx is normal. Eyes PERRL and EOMs intact bilaterally General Eye ED: Negative for pale conjunctiva or scleral icterus Neck no lymphadenopathy, supple, no meningeal signs and no JVD Resp normal respiratory effort and clear to auscultation bilaterally Cardio regular rate, regular rhythm, S1 normal heart sound, S2 normal heart sound and no murmurs GI non-tender, non-distended and no masses Auscultation: normoactive bowel sounds Palpation: soft Back/Spine no CVA tenderness and normal to inspection Extremity normal to inspection Extremity Narrative: There is no asymmetry, swelling, discoloration, leg vein distention, palpable cords or tenderness along the distribution of the deep venous system. General Extremety ED: Negative for edema or tenderness General Extremity: Negative for edema Neuro oriented x3, CN's II-XII intact bilaterally and no sensory deficits noted [place] Coma Scale: document GCS findings Spontaneous Obeys Commands Oriented 15 Sensorium / Orientation: alert Psych mental status grossly normal Thought Process: normal thought process Skin no wounds and skin turgor normal General Skin Exam: Negative for jaundice or pallor MDM MDM MDM Narrative Medical decision making narrative: Need to rule out cardiac versus noncardiac etiology noncardiac etiology would be pneumothorax, pulmonary embolus. Chest x-ray, EKG and appropriate blood work was ordered. If there is no contraindication and no abnormality noted on chest x-ray to explain her symptoms will obtain CTA to rule out PE especially in light of the fact that she has had a prior PE and has not been on apixaban for 1.5 weeks. History & Record Review Additional record(s) reviewed:: Prior outpatient record, Prior ED visit and Prior labs Lab Data Attestation: I reviewed the patient's lab results. Lab results narrative: CBC is normal. Basic metabolic panel is remarked for glucose of 124 with normal CO2 anion gap. Creatinine is normal. GFR is normal. Troponin is normal. Labs: Laboratory Results - last 24 hr 06/12/23 17:30 WBC 6.7 RBC 4.37 Hgb 13.0 Hct 40.5 MCV 92.7 MCH 29.7 MCHC 32.1 RDW Std Deviation 45.8 H RDW Coeff of Mihaela 13.4 Plt Count 238 MPV 9.8 Immature Gran % (Auto) 0.300 Neut % (Auto) 67.2 Lymph % (Auto) 21.5 [place] % (Auto) 8.7 Eos % (Auto) 1.7 Baso % (Auto) 0.6 Absolute Neuts (auto) 4.5 Absolute Lymphs (auto) 1.43 Nucleated RBC % 0 Sodium 139 Potassium 3.7 Chloride 105 Carbon Dioxide 27.0 Anion Gap 7 BUN 12 Creatinine 0.88 Estim Creat Clear Calc 48.17 Est GFR (MDRD) Af Amer 80 Est GFR (MDRD) Non-Af 66 BUN/Creatinine Ratio 13.7 Glucose 124 H Lactic Acid 1.7 Calcium 9.3 Troponin I High Sens 4 Radiography Diagnostic Testing: Clinical Impression(s) from Imaging Studies Chest X-Ray 06/12/23 17:39 IMPRESSION: Mild discoid atelectasis in the left lower lobe. Electronically Signed: Marcelo Serrano MD at 17:57 EDT , Chest CTA 06/12/23 22:38 IMPRESSION: 1. No CT evidence of pulmonary embolism. 2. Mild emphysema with no change in scarring and nodules. 3. Questionable mass in head of pancreas and correlation with pancreas protocol CT is recommended. Electronically Signed: Patel Casiano MD at 23:47 EDT , EKG Initial EKG: Attestation: I personally reviewed and interpreted this EKG as follows: Interpretation: Sinus Rhythm (Rate is 86. EKG is normal. [place] interval 234 ms. QS duration 74 ms. QT duration 374 ms. [place] is normal) Treatment and Re-Evaluation :: Patient was informed of CAT scan result with concern for mass head of the pancreas. Patient will need pancreas CT protocol ordered. This can be done as an outpatient. Her physician is Dr. Spring. She is on-call. Will notify her to make arrangements for outpatient CAT scan. Spoke with Dr. Sullivan. She was informed of concern for pancreatic mass. She informed that if the patient does not call on Thursday she will have her elementary secretary call to make arrangements for CT pancreas. Discharge Plan Triage Chief Complaint: Shortness of Breath ED Provider: Eleuterio Chun Dx/Rx/DC Orders Clinical Impression: Acute dyspnea, GERD (gastroesophageal reflux disease), Emphysema lung, Mass of head of pancreas, History of breast cancer, History of lung cancer Prescriptions: No Action levothyroxine 75 MCG tablet 75 mcg PO DAILY Patient Comments: THYROID omeprazole 20 MG capsule 20 mg PO DAILY Patient Comments: ACID REFLUX fluticasone propionate 1 SPRAY spray,suspension 2 spray NASAL DAILY Patient Comments: NASAL CONGESTION cholecalciferol (vitamin D3) [Vitamin D3] 2,000 UNIT tablet 2,000 unit PO DAILY Patient Comments: SUPPLEMENT Venlafaxine Xr [Effexor Xr] 75 MG capsule 75 mg PO DAILY Patient Comments: DEPRESSION tolterodine 2 MG capsule,extended release 24hr 2 mg PO BID Patient Comments: bladder Tagrisso 40 mg Tablet 40 mg PO DAILY Eliquis DVT-PE Treat 30D Start 5 mg (74 tabs) tablets,dose pack 5 mg PO BID 30 Days Qty: 60 0RF Primary Care Provider: Jessenia Spring Referrals: Jessenia Spring MD [Primary Care Provider] - Activity Restrictions/Additional Instructions: Call Dr. Spring's office and she will make arrangements for you to have CT of the abdomen to evaluate for possible pancreatic mass Disposition Disposition: Home, Self Care
--- NOTE | 2023-06-12 17:39 | RAD_ITS ---
STUDY: X-RAY CHEST REASON FOR EXAM: Female, 77 years old. Dyspnea TECHNIQUE: PA and lateral COMPARISON: September 16, 2021 FINDINGS: Mild discoid atelectasis at left base.. There is no demonstrated pleural abnormality. Normal size heart. Normal mediastinum and ambreen. Normal visualized pulmonary arteries. Normal visualized aortic arch and descending thoracic aorta. Dorsal spine demonstrates degenerative change. Normal visualized ribs, clavicles, and shoulders. There are surgical clips projecting over the left lower chest wall Mild diffuse nonspecific ileus pattern within the upper and mid abdomen. RAD/Chest PA and Lateral IMPRESSION: Mild discoid atelectasis in the left lower lobe. Electronically Signed: Marcelo Serrano MD at 17:57 EDT ,
[2023-06-12 17:53] LABS: Absolute Lymphocyte Count 1.43 X10^3/uL (0.83-4.51); Absolute Neutrophil Count 4.5 X10^3/uL (2.0-7.7); Basophil# 0.04 X10^3/uL; Basophil% 0.6 % (0-1); Eosinophil# 0.11 X10^3/uL; Eosinophils% 1.7 % (0-5); Hematocrit 40.5 % (37-47); Lymphocyte # 1.43 X10^3/ul (0.83-4.51); Lymphocyte % 21.5 % (19-41); Mean Corp Hgb Conc 32.1 g/dL (32-36); Mean Corpuscular Hgb 29.7 pg (27.0-32.0); Mean Corpuscular Volume 92.7 fL (81-99); Mean Platelet Vol. 9.8 fl (6.2-12.0); Monocyte# 0.58 X10^3/uL; Monocyte% 8.7 % (0-10); NRBC Flagged by Analyzer 0 % (0-5); Neutrophil # 4.47 X10^3/uL (2.7-7.7); Neutrophil % 67.2 % (47-70); Platelet Count 238 K/mm3 (150-450); RBC Distribution Width CV 13.4 % (11.6-14.6); RBC Distribution Width SD 45.8 fl (35.1-43.9); Red Blood Count 4.37 M/mm3 (4.2-5.4); White Blood Count 6.7 K/mm3 (4.4-11.0)
[2023-06-12 18:03] LABS: Lactic Acid 1.7 mmol/L (0.4-1.9)
[2023-06-12 18:09] LABS: Anion Gap 7 (5-15); BUN 12 mg/dL (7-18); BUN/Creat Ratio 13.7 RATIO (10-20); Calcium,Total 9.3 mg/dL (8.5-10.1); Chloride 105 mmol/L (98-107); Creatinine, Serum 0.88 mg/dL (0.55-1.02); EST Glomerular Filtration Rate 66 mL/min (>60); Est Glom Filt Rate - Afr Amer 80 mL/min (>60); Estimated Creatinine Clearance 48.17 ml/min; Glucose 124 mg/dL (74-106); Potassium 3.7 mmol/L (3.5-5.1); Sodium Level 139 mmol/L (136-145); Troponin-I HS 4 pg/mL (3.0-54.0)
--- NOTE | 2023-06-12 22:38 | CT_ITS ---
STUDY: CTA CHEST REASON FOR EXAM: Female, 77 years old. sob RADIATION DOSAGE (If Supplied By Facility): CTDIvol = ( 5.68 ) mGy, DLP = ( 174.95 ) mGycm TECHNIQUE: The examination was performed with the intravenous administration of IV 75mL Isovue-370. Post-processing of the angiographic images was performed, with multiplanar reformation and 3D reconstruction. Individualized dose optimization techniques were used for this CT. COMPARISON: 09/16/2021 FINDINGS: Normal enhancement of the main pulmonary artery and right and left pulmonary arteries. Normal enhancement of the bilateral peripheral pulmonary arteries. There is no demonstrated pulmonary embolism. Normal thoracic aorta and visualized great vessels. There is no demonstrated aortic dissection. Normal heart and pericardium. Normal mediastinum. Normal hilar regions. Normal visualized trachea and bronchi. The lungs are well expanded. Mild bilateral apical scarring. Mild emphysema. No change in the scarring in the medial right upper lobe. No change in subpleural nodules in the upper lobes. No change in the 6 cm noncalcified nodule in the right lower lobe consistent with a noncalcified granuloma. Normal pleura. Normal chest wall structures. Normal osseous structures. 2.5 cm oval area of decreased attenuation within the head of the pancreas worrisome for mass and correlation with pancreas protocol CT is recommended. 4.5 cm cyst in the midsection of the right kidney. CT/CTA Chest W/WO Contrast IMPRESSION: 1. No CT evidence of pulmonary embolism. 2. Mild emphysema with no change in scarring and nodules. 3. Questionable mass in head of pancreas and correlation with pancreas protocol CT is recommended. Electronically Signed: Patel Casiano MD at 23:47 EDT ,
== END 2023-06-13 00:08 | disposition home or self-care (01) ==
PROVIDERS: Emergency Provider Emergency Medicine; PCP Internal Medicine; Visit Provider Emergency Medicine
DX: R06.00 Dyspnea, unspecified (principal); J43.9 Emphysema, unspecified; K86.89 Other specified diseases of pancreas; Z87.891 Personal history of nicotine dependence; K21.9 Gastro-esophageal reflux disease without esophagitis; Z85.118 Personal history of other malignant neoplasm of bronchus and lung; E78.00 Pure hypercholesterolemia, unspecified; F32.A Depression, unspecified; E03.9 Hypothyroidism, unspecified; Z79.899 Other long term (current) drug therapy; Z96.653 Presence of artificial knee joint, bilateral; Z85.3 Personal history of malignant neoplasm of breast
CPT/HCPCS: 71046; 71275; 80048; 83605; 84484; 85025; 93005; 99282; Q9967; A4216

== ENCOUNTER 2024-07-30 09:08 | Inpatient (IN) | payer MEDICARE, OTHER, SELFPAY ==
[2024-07-30] VITALS (9 sets, daily range): BP systolic 138–158; BP diastolic 78–93; PULSE 84–114; RESP 15–22; TEMP 36.3–37.3; O2SAT 96–98; BMI 25.6
--- NOTE | 2024-07-30 09:30 | CT_ITS ---
PROCEDURE: ABDOMEN/PELVIS W IV CONT ONLY 07/30/2024 REASON FOR EXAM: ABDOMINAL PAIN TECHNIQUE: Abdomen and pelvis CT with intravenous contrast. Coronal and Sagittal reconstruction series were provided. PATIENT PREPARATION: Per protocol ORAL CONTRAST TYPE: None. AMOUNT: mL One or more dose reduction techniques were used (e.g., Automated exposure control, adjustment of the mA and/or kV according to patient size, use of iterative reconstruction technique. FINDINGS: Lung bases: Lung bases are clear. Liver: Normal size. No mass. Gallbladder: Unremarkable. Spleen: Normal size. Pancreas: Normal size without evidence of mass surrounding inflammation or ductal dilation. Adrenals: Unremarkable. Kidneys: 5 cm exophytic cyst of the mid section of the right kidney. Normal left kidney. Bladder: Unremarkable. Reproductive Organs: Unremarkable. Bowel: No bowel obstruction. Small diverticulum of the proximal 3rd portion of the duodenum. Appendix: Unremarkable. Lymph nodes: Unremarkable. Vasculature: The abdominal aorta and IVC are normal. Peritoneum / Retroperitoneum: Small amount of free fluid in the pelvis which is abnormal in a postmenopausal female. Bones: Degenerative changes of the spine. CT/Abdomen/Pelvis W IV Cont ONLY IMPRESSION: Small amount of free fluid in the pelvis in a postmenopausal female worrisome f or peritonitis but without obvious etiology. Reading Location: [id number]
--- NOTE | 2024-07-30 09:30 | ED.VIS.GI ---
HPI HPI - GI History of Present Illness Chief Complaint: Abd Pain Narrative Narrative: 78-year-old female presents with her because of abdominal pain, nausea and vomiting that she has had over the last 2 days. She states her symptoms actually started on Thursday, approximately 4 days ago as she was experiencing constipation before that. She took MiraLAX and had a bowel movement on Thursday morning. She took it again Thursday, but states she has not had a bowel movement since. She has been having nausea and vomiting and diffuse abdominal pain but it has been concentrated in the left lower quadrant recently. The nausea and vomiting developed more so over the last 2 days she states. She has past surgical history of hysterectomy. She states that her pain feels both dull and achy and sharp and stabbing at times. It moves around to all quadrants of her abdomen. No other exacerbating or alleviating factors. However, her does state that she has had irregular bowel movements in the past. [facility] Medical History Hypothyroidism Cancer Depression Alcohol use Thyroid disease Arthritis Anemia High cholesterol Back pain Gastric reflux Former smoker Shortness of breath on exertion Normal stress echocardiogram Cardiology follow-up encounter Home Medications ?Medication ?Instructions ?Recorded ?Last Taken ?Type cholecalciferol (vitamin D3) 50 2,000 unit PO DAILY 04/11/13 07/30/24 History mcg (2,000 unit) tablet (Vitamin D3) fluticasone propionate 50 2 spray intranasal DAILY PRN nasal 04/11/13 Unknown History mcg/actuation nasal congestion spray,suspension levothyroxine 75 mcg tablet 75 mcg PO DAILY 04/11/13 07/29/24 History omeprazole 20 mg capsule,delayed 20 mg PO DAILY 04/11/13 07/29/24 History release apixaban 5 mg (74 tabs) tablets in 5 mg PO BID 30 days #60 tabs 09/16/21 07/29/24 Rx a dose pack (Eliquis DVT-PE Treat 30D Start) trospium 20 mg tablet 20 mg PO BID 07/30/24 07/29/24 History venlafaxine 75 mg capsule,extended 75 mg PO DAILY 07/30/24 07/29/24 History release 24 hr Allergy/AdvReac Type Severity Reaction Status Date / Time amoxicillin (Amoxicillin) Allergy Other Verified 07/30/24 09:11 morphine Allergy Inflammation Verified 07/30/24 09:52 of vein naproxen Allergy Other Verified 07/30/24 09:11 Surgical History History of total left knee replacement History of total right knee replacement History of lumpectomy of left breast Hx of dilation and curettage History of hysteroscopy Social History Smoking Status: Former smoker ROS ROS ED ROS Narrative Constitutional: No fever, no chills. Cardiovascular: No chest pain. No palpitations. No pedal edema. Respiratory: No cough, no shortness of breath. Abdominal: Positive abdominal pain. Positive nausea and vomiting over the last 2 days. Constipation over the last 4 days. Genitourinary: No dysuria. No hematuria. EXAM Physical Exam Narrative Exam Narrative: Afebrile. Vital signs noted. Nontoxic-appearing. Cardiovascular examination reveals mild tachycardia. Lungs clear to auscultation bilaterally. The abdomen is soft and is diffusely tender without guarding or rebound. She has pain in both the epigastrium and in the left lower quadrant. Decreased bowel sounds. Neurological examination nonfocal, nonlateralizing. Const Vital Signs: 07/30/24 09:09 07/30/24 09:11 07/30/24 11:08 Temperature 97.6 F L 97.6 F L Temperature Source Temporal Oral Pulse Rate 114 H 114 H 84 Respiratory Rate 22 H 22 H 16 Blood Pressure 158/78 H 158/78 H 154/81 H Blood Pressure Mean 104 104 105 Pulse Ox 97 98 97 Oxygen Delivery Method Room Air Room Air Room Air MDM MDM MDM Narrative Medical decision making narrative: The differential diagnosis includes but not limited to diverticulitis versus pancreatitis versus bowel obstruction versus constipation versus nonspecific abdominal pain. Comprehensive workup was pursued. She was administered a bolus of normal saline as well as morphine and ondansetron. It was reported by RN that she had a reaction to the morphine where she had redness and it traced through her veins of her left upper extremity. She was administered Benadryl intravenously. Repeat examination shows improvement. She states that she has received morphine in the past and never had that type of reaction. I reviewed her laboratory work and she has elevated white count of 13.4 with hemoglobin 14.3, hematocrit 41.5, platelet count 329. Sodium is normal at 138 with potassium 3.9, CO2 low at 19.6 which could be from hyperventilation. Glucose 128 with a normal anion gap of 14. LFTs are grossly unremarkable. Lipase normal at 21 so I doubt pancreatitis as a cause of any abdominal pain in the epigastrium. Urinalysis shows WBC 0-5. I do not feel antibiotics are indicated. Of significance is review of the radiology report of the CT of the abdomen and pelvis. There is free fluid in the pelvis which is concerning for peritonitis. Repeat examination shows her abdomen to remain soft, but she does have diffuse tenderness. While she states she has no pain without movement, on palpation, she has diffuse tenderness throughout the abdomen albeit nonsurgical. I discussed the patient with Dr. Trevizo who would like me to discuss patient with general surgery. I discussed the patient with Dr. Matute who feels medical admission and antibiotics and surgical consultation is appropriate. I rediscussed the patient with Dr. Trevizo for admission to the general medical floor. I did start her on Zosyn. She states that her allergy to amoxicillin is headaches. I do feel that the broad-spectrum antibiotic and Zosyn would cover her peritonitis. Disposition is admit in stable condition. History & Record Review Discussion w/independent historian: Patient and Family () Lab Data Attestation: I reviewed the patient's lab results. Labs: Laboratory Results - last 24 hr 07/30/24 07/30/24 09:40 10:25 WBC 13.4 H RBC 4.69 Hgb 14.3 Hct 41.5 MCV 88.5 MCH 30.5 MCHC 34.5 RDW Std Deviation 43.7 RDW Coeff of Mihaela 13.4 Plt Count 329 MPV 8.7 Immature Gran % (Auto) 0.400 Neut % (Auto) 79.1 H Lymph % (Auto) 9.0 L [place] % (Auto) 10.5 H Eos % (Auto) 0.6 Baso % (Auto) 0.4 Absolute Neuts (auto) 10.6 H Absolute Lymphs (auto) 1.20 Nucleated RBC % 0 Sodium 138 Potassium 3.9 Chloride 104 Carbon Dioxide 19.6 L Anion Gap 14 BUN 10 Creatinine 0.74 Est GFR (MDRD) Non-Af 83 BUN/Creatinine Ratio 13.8 Glucose 128 H Calcium 9.4 Total Bilirubin 0.80 AST 16 ALT 9 Alkaline Phosphatase 76 Total Protein 6.7 Albumin 4.0 Globulin 2.7 Albumin/Globulin Ratio 1.5 Lipase 21 Urine Color Yellow Urine Clarity Sl. Cloudy Urine pH 7.0 Ur Specific [place] 1.010 Urine Protein 30 H Urine Glucose (UA) Normal Urine Ketones 5 H Urine Occult Blood 250 H Urine Nitrite Negative Urine Bilirubin Negative Urine Urobilinogen Normal Ur Leukocyte Esterase 25 H Urine RBC 10-25 SEEN Urine WBC 0-5 SEEN Ur Squamous Epith Cells 0-5 SEEN Urine Bacteria 1+ Urine Mucus 1+ Radiography Diagnostic Testing: Clinical Impression(s) from Imaging Studies Abdomen/Pelvis CT 07/30/24 09:30 IMPRESSION: Small amount of free fluid in the pelvis in a postmenopausal female worrisome for peritonitis but without obvious etiology. Reading Location: [id number] Management Discussion w/another healthcare provider: Hospitalist (Dr. Trevizo) and [id number]/M60 Tank Driver (Dr. Matute) Discharge Plan Dx/Rx/DC Orders Clinical Impression: Peritonitis, Abdominal pain, Leukocytosis Disposition Disposition: Acute Care Hospital [facility]
[2024-07-30] MEDS: Morphine 4 MG/ML Syringe IV (09:37)
[2024-07-30] MEDS: 0.9% Normal Saline (1000mL) 1,000 ML 999 ML IV (09:37)
[2024-07-30] MEDS: Ondansetron 4 MG/2 ML Vial IV (09:37)
[2024-07-30 09:48] LABS: Absolute Neutrophil Count 10.6 X10^3/uL (2.0-7.7); Basophil# 0.06 X10^3/uL; Basophil% 0.4 % (0-1); Eosinophil# 0.08 X10^3/uL; Eosinophils% 0.6 % (0-5); Hematocrit 41.5 % (37-47); Hemoglobin 14.3 g/dL (12.0-15.0); Mean Corp Hgb Conc 34.5 g/dL (32-36); Mean Corpuscular Hgb 30.5 pg (27.0-32.0); Mean Corpuscular Volume 88.5 fL (81-99); Mean Platelet Vol. 8.7 fl (6.2-12.0); Monocyte# 1.41 X10^3/uL; Monocyte% 10.5 % (0-10); NRBC Flagged by Analyzer 0 % (0-5); Neutrophil # 10.58 X10^3/uL (2.7-7.7); Neutrophil % 79.1 % (47-70); Platelet Count 329 K/mm3 (150-450); RBC Distribution Width CV 13.4 % (11.6-14.6); RBC Distribution Width SD 43.7 fl (35.1-43.9); Red Blood Count 4.69 M/mm3 (4.2-5.4); White Blood Count 13.4 K/mm3 (4.4-11.0)
[2024-07-30 10:12] LABS: ALB/GLOB Ratio 1.5 RATIO (0.9-2.4); AST(SGOT) 16 U/L (<=31); Alanine Aminotransfer ALT/SGPT 9 U/L (<=34); Alkaline Phosphatase 76 U/L (35-104); Anion Gap 14 (5-15); BUN 10 mg/dL (4-19); BUN/Creat Ratio 13.8 RATIO (10-20); Calcium,Total 9.4 mg/dL (7.6-11.0); Carbon Dioxide 19.6 mmol/L (21.0-32.0); Chloride 104 mmol/L (98-108); Creatinine, Serum 0.74 mg/dL (0.70-1.20); EST Glomerular Filtration Rate 83 (>60); Globulin 2.7 g/dL (2.2-4.2); Glucose 128 mg/dL (70-99); Lipase 21 U/L (13-75); Potassium 3.9 mmol/L (3.3-5.1); Protein, Total 6.7 g/dL (5.9-8.4); Sodium Level 138 mmol/L (133-145)
[2024-07-30] MEDS: DiphenhydrAMINE 50 MG/ML Syringe 25 MG IV (10:23)
[2024-07-30 10:31] LABS: Color, Urine Yellow (Yellow); Glucose, Dipstick Normal (Normal); Ketone-Dipstick 5 mg/dl (Negative); Leukocyte Esterase-Dipstick 25 /ul (Negative); Nitrite-Dipstick Negative (Negative); Occult Blood-Urine 250 /ul (Negative); Protein-Dipstick 30 mg/dl (Negative); Urine Bilirubin Dipstick Negative (Negative); Urine Clarity Sl. Cloudy (Clear); Urine Urobilinogen Normal (Normal)
[2024-07-30 10:39] LABS: Bacteria 1+ /hpf (None Seen); Mucous, Urine 1+ /hpf (<or=2+); Red Blood Cells-Urine 10-25 SEEN /hpf (0-5); Squamous Epithelial Cells - UA 0-5 SEEN /hpf (5-10); White Blood Cells 0-5 SEEN /hpf (0-5)
--- NOTE | 2024-07-30 11:24 | PCM.HP.STD ---
HPI - General General Date of Admission: 07/30/24 Date of Service: 07/30/24 Chief Complaint: abdominal pain HPI Narrative TERI SHAY, is a 78 F with a PMH as outlined who presents via the ED on 07/30/2024 with a complaint of abdominal pain with associated nausea and vomiting for 2 dys prior to admission. She had constipation 4 days prior to admission and had a bowel movement, but has not had any bm for 2 days prior to admission. She denied any fever or chills, shortness of breath, cough or palpitations or any other symptoms. Review of systems otherwise negative. Vitals in the ED were blood pressure 158/78, pulse rate of 114, respirate rate of 22 and temperature of 97.6 Fahrenheit. She was saturating at 98% on room air. CBC showed hemoglobin of 14.3 with WBC of 13.4 and platelets of 329. Chemistry showed sodium of 138 potassium of 3.9 and bicarb of 19.6. Anion gap was 14. Creatinine was 0.74. Urinalysis showed 1+ bacteria and 0-[address] of the abdomen and pelvis showed small amount of free fluid in the pelvis in a postmenopausal female worrisome for peritonitis. [facility] Medical History Hypothyroidism Cancer Depression Alcohol use Thyroid disease Arthritis Anemia High cholesterol Back pain Gastric reflux Former smoker Shortness of breath on exertion Normal stress echocardiogram Cardiology follow-up encounter Home Medications ?Medication ?Instructions ?Recorded ?Last Taken ?Type cholecalciferol (vitamin D3) 50 2,000 unit PO DAILY 04/11/13 07/30/24 History mcg (2,000 unit) tablet (Vitamin D3) fluticasone propionate 50 2 spray intranasal DAILY PRN nasal 04/11/13 Unknown History mcg/actuation nasal congestion spray,suspension levothyroxine 75 mcg tablet 75 mcg PO DAILY 04/11/13 07/29/24 History omeprazole 20 mg capsule,delayed 20 mg PO DAILY 04/11/13 07/29/24 History release apixaban 5 mg (74 tabs) tablets in 5 mg PO BID 30 days #60 tabs 09/16/21 07/29/24 Rx a dose pack (Eliquis DVT-PE Treat 30D Start) trospium 20 mg tablet 20 mg PO BID 07/30/24 07/29/24 History venlafaxine 75 mg capsule,extended 75 mg PO DAILY 07/30/24 07/29/24 History release 24 hr Allergy/AdvReac Type Severity Reaction Status Date / Time amoxicillin (Amoxicillin) Allergy Other Verified 07/30/24 09:11 morphine Allergy Inflammation Verified 07/30/24 09:52 of vein naproxen Allergy Other Verified 07/30/24 09:11 Surgical History History of total left knee replacement History of total right knee replacement History of lumpectomy of left breast Hx of dilation and curettage History of hysteroscopy Social History Smoking Status: Former smoker ROS Constitutional Constitutional: Reports chills, fatigue, malaise and weakness; Denies anorexia or fever(s) Eyes Eyes: Denies change in vision ENT HEENT: Denies abnormal hearing, headache(s) or sore throat Cardiovascular Cardiovascular: Denies chest pain, dyspnea on exertion, edema, lightheadedness, orthopnea, palpitations, paroxysmal nocturnal dyspnea, rapid heart rate or syncope Respiratory/Chest Respiratory/Chest: Denies cough, dyspnea, shortness of breath at rest or shortness of breath with exertion Gastrointestinal Gastrointestinal: Reports abdominal pain and constipation; Denies diarrhea, dyspepsia, hematemesis, hematochezia, nausea or vomiting Genitourinary Genitourinary: Denies burning urination or dysuria Musculoskeletal Musculoskeletal: Denies arthralgias or joint swelling Neurologic Neurologic: Denies confusion, dizziness, focal weakness, headache(s), numbness, seizures, syncope or tingling Psychiatric Psychiatric: Denies anxiety or depression Endocrine Endocrinology: Denies change in body appearance Hematologic/Lymphatic Hematologic/Lymphatic: Denies anemia Vital Signs Vital Signs Vital Signs: 07/30/24 09:09 07/30/24 09:11 Temperature 97.6 F L 97.6 F L Temperature Source Temporal Oral Pulse Rate 114 H 114 H Respiratory Rate 22 H 22 H Blood Pressure 158/78 H 158/78 H Blood Pressure Mean 104 104 Pulse Ox 97 98 Oxygen Delivery Method Room Air Room Air Physical Exam Const alert, oriented x3 and no apparent distress General Appearance: cooperative HEENT normocephalic, head/scalp atraumatic, hearing grossly normal bilaterally and moist oral mucous membranes Mouth: oral and palatal mucosa normal Eyes PERRL, EOMs intact bilaterally and conjunctivae normal Neck no lymphadenopathy and supple Resp normal respiratory effort, no retractions, no use of accessory muscles and clear to auscultation bilaterally Cardio regular rate, regular rhythm, S1 normal heart sound, S2 normal heart sound and no murmurs GI normal to inspection, nondistended, normoactive bowel sounds and soft to palpation GI Narrative: moderate generalised tenderness, worse in the left lower quadrant, no guarding or rebound tenderness. Extremity normal to inspection, full ROM and no clubbing, cyanosis or edema Neuro oriented x3, CN's II-XII intact bilaterally, moves all extremities and no focal motor deficits Motor Exam: strength 5/5 throughout Psych affect normal Results Lab / Micro Data 07/30/24 09:40 07/30/24 09:40 Labs: Laboratory Results - last 24 hr 07/30/24 09:40: WBC 13.4 H, RBC 4.69, Hgb 14.3, Hct 41.5, MCV 88.5, MCH 30.5, MCHC 34.5, RDW Std Deviation 43.7, RDW Coeff of Mihaela 13.4, Plt Count 329, MPV 8.7, Immature Gran % (Auto) 0.400, Neut % (Auto) 79.1 H, Lymph % (Auto) 9.0 L, [place] % (Auto) 10.5 H, Eos % (Auto) 0.6, Baso % (Auto) 0.4, Absolute Neuts (auto) 10.6 H, Absolute Lymphs (auto) 1.20, Nucleated RBC % 0, Sodium 138, Potassium 3.9, Chloride 104, Carbon Dioxide 19.6 L, Anion Gap 14, BUN 10, Creatinine 0.74, Est GFR (MDRD) Non-Af 83, BUN/Creatinine Ratio 13.8, Glucose 128 H, Calcium 9.4, Total Bilirubin 0.80, AST 16, ALT 9, Alkaline Phosphatase 76, Total Protein 6.7, Albumin 4.0, Globulin 2.7, Albumin/Globulin Ratio 1.5, Lipase 21 07/30/24 10:25: Urine Color Yellow, Urine Clarity Sl. Cloudy, Urine pH 7.0, Ur Specific [place] 1.010, Urine Protein 30 H, Urine Glucose (UA) Normal, Urine Ketones 5 H, Urine Occult Blood 250 H, Urine Nitrite Negative, Urine Bilirubin Negative, Urine Urobilinogen Normal, Ur Leukocyte Esterase 25 H, Urine RBC 10-25 SEEN, Urine WBC 0-5 SEEN, Ur Squamous Epith Cells 0-5 SEEN, Urine Bacteria 1+, Urine Mucus 1+ Imaging Radiology Impression Abdomen/Pelvis CT 07/30/24 09:30 IMPRESSION: Small amount of free fluid in the pelvis in a postmenopausal female worrisome for peritonitis but without obvious etiology. Reading Location: [id number] Assessment & Plan Assessment/Plan (1) Abdominal pain: (2) Leukocytosis: PLAN: Plan #Generalised abdominal pain Etiology is unclear. Patient does have chronic constipation and her last bowel movement was about 3 days ago. Before then she had gone about 2 weeks without really having a bowel movement. She states this is normal for her She had a small bowel movement 3 days ago after she had MiraLAX. She started having abdominal pain 2 days ago and says it is mainly in her left lower quadrant. She describes the pain as sharp but more cramping. It was relieved by morphine but had no aggravating factors. CT of the abdomen done with IV contrast showed small amount of free fluid in the pelvis in a postmenopausal female worrisome for peritonitis but without obvious etiology. : Admit to [facility]. ED discussed with general surgery and the general surgeon who did not think this was really peritonitis. Will cover with IV cefepime. Keep n.p.o. for now. Hydrate with IV fluid normal saline at 125 cc/h. Consult general surgery. #History of breast cancer: Stable #GERD: On PPI #Depression: On venlafaxine #Hypothyroidism: On Synthroid #DVT prophylaxis: On Eliquis Charges/Coding Visit Charges Inpatient E&M: 14572 Subs Hosp L2
[2024-07-30] MEDS: Piperacil/Tazobactam 3.375 GM/50 ML ML IV (11:37)
[2024-07-30 12:17] LABS: Lactic Acid 1.5 mmol/L (0.0-2.0)
[2024-07-30] MEDS: 0.9% Normal Saline (1000mL) 1,000 ML 125 ML IV ×2 (12:41→21:01)
--- NOTE | 2024-07-30 12:50 | CASEMGMT ---
RN CM Face to Face with patient for initial transition planning/care coordination assessment. RN CM introduced self and role at [facility]. Patient lying in bed, alert and oriented. Patient willing to participate in assessment and is able to answer all questions appropriately. Care providers, pharmacy, and demographics verified. Strata: 2 PCP: Saw Specialists: Halima, oncologist; Preferred Pharmacy: [facility] Insurance: [facility], [employer] Prescription Benefit: yes Living Will/HPOA: yes, Billy Alvarez LNOK: , son Living Arrangements: Patient lives with in a 3 story home. Patient is independent and able to ambulate stairs. Transportation: self, DME/HHC: Patient has shower chair, raised toilet, cane, walker, and grab bars at home. No previous SNF or HHC. Patient wishes to discharge home, denies need for home health at this time. Patient states he has no further needs or concerns at this time. CM to follow for discharge planning needs that may arise. Disposition Plan: Patient to discharge home with family support and follow-up plans in place. Jeni WAGNER, RN, CM
--- NOTE | 2024-07-30 13:33 | EX.PCM.CON.S ---
Assessment & Plan Assessment/Plan (1) Abdominal pain: PLAN: Plan The patient is a 78-year-old female who presented to the emergency department earlier today with 2-day history of abdominal pain mostly in the left lower quadrant. She did have a white count of 12,000. CT scan was performed and was only notable for trace amount of fluid in the pelvis which was thought to be possibly concerning for peritonitis although no free air or inflammatory changes or other findings were noted on CT scan. Surgical consult was obtained. She does have moderate tenderness to palpation in the left lower quadrant. I would recommend antibiotics as I be concerned about the possibility of diverticulitis or even a stercoral ulcer given her recent issues with constipation. I reviewed the images myself and do not see any evidence of free air to suggest perforation. Would continue to advise n.p.o. status. Will continue to follow along however have no surgical plans at this point. I would however suggest attempts at stimulating bowel movements, and she would certainly benefit from being on a bowel regimen once she is discharged home HPI Consult Data Date of Consult: 07/30/24 HPI Narrative Reason for Consultation: Abdominal pain HPI Narrative: TERI SHAY, is a 78 F who presented earlier today to the [facility] emergency department with complaints of abdominal pain. She states that the abdominal pain started yesterday and was associated with emesis. She denies any fevers or chills. She admits that she does have issues with constipation chronically. She admitted that has been several days since she has had a decent bowel movement. She first noticed this recent issue with constipation about 4 days ago. She began taking MiraLAX and was able to get some results however she continues to feel that she has stool within her colon. The abdominal pain started yesterday. She states that seems to move around but seems to be mostly in the left lower quadrant recently. Only prior surgeries on her abdomen was a hysterectomy. She was seen and evaluated by the ER staff. She underwent laboratory testing in the emergency room. This showed a mild leukocytosis with a white count of 12. CT scan was performed and the only finding was a trace amount of fluid in the pelvis which was read by the radiologist as possibly suggesting peritonitis although no other abnormality or etiology could be noted on CT scan. There is no evidence of inflammation nor free air etc. She was subsequently admitted to medicine and a surgical consult was requested. Currently she is resting in her hospital bed. She still complains of some left lower quadrant pain. No fevers or chills. No nausea or vomiting. [facility] Medical History Hypothyroidism Cancer Depression Alcohol use Thyroid disease Arthritis Anemia High cholesterol Back pain Gastric reflux Former smoker Shortness of breath on exertion Normal stress echocardiogram Cardiology follow-up encounter Medical History no medical history Home Medications ?Medication ?Instructions ?Recorded ?Last Taken ?Type cholecalciferol (vitamin D3) 50 2,000 unit PO DAILY 04/11/13 07/30/24 History mcg (2,000 unit) tablet (Vitamin D3) fluticasone propionate 50 2 spray intranasal DAILY PRN nasal 04/11/13 Unknown History mcg/actuation nasal congestion spray,suspension levothyroxine 75 mcg tablet 75 mcg PO DAILY 04/11/13 07/29/24 History omeprazole 20 mg capsule,delayed 20 mg PO DAILY 04/11/13 07/29/24 History release apixaban 5 mg (74 tabs) tablets in 5 mg PO BID 30 days #60 tabs 09/16/21 07/29/24 Rx a dose pack ([facility] DVT-PE Treat 30D Start) trospium 20 mg tablet 20 mg PO BID 07/30/24 07/29/24 History venlafaxine 75 mg capsule,extended 75 mg PO DAILY 07/30/24 07/29/24 History release 24 hr Allergy/AdvReac Type Severity Reaction Status Date / Time amoxicillin (Amoxicillin) Allergy Other Verified 07/30/24 09:11 morphine Allergy Inflammation Verified 07/30/24 09:52 of vein naproxen Allergy Other Verified 07/30/24 09:11 Surgical History History of total left knee replacement History of total right knee replacement History of lumpectomy of left breast Hx of dilation and curettage History of hysteroscopy Social History Smoking Status: Former smoker ROS Eyes Eyes: Reports systems reviewed and no addt'l complaints, except as documented ENT HEENT: Reports systems reviewed and no addt'l complaints, except as documented Cardiovascular Cardiovascular: Reports systems reviewed and no addt'l complaints, except as documented Respiratory/Chest Respiratory/Chest: Reports systems reviewed and no addt'l complaints, except as documented Gastrointestinal Gastrointestinal: Reports systems reviewed and no addt'l complaints, except as documented Genitourinary Genitourinary: Reports systems reviewed and no addt'l complaints, except as documented Medical Records Data Attestation: I reviewed the patient's medical records Lab / Micro Data Attestation: I reviewed the patient's lab results. 07/30/24 09:40 07/30/24 09:40 Labs: Laboratory Results - last 24 hr 07/30/24 09:40: WBC 13.4 H, RBC 4.69, Hgb 14.3, Hct 41.5, MCV 88.5, MCH 30.5, MCHC 34.5, RDW Std Deviation 43.7, RDW Coeff of Mihaela 13.4, Plt Count 329, MPV 8.7, Immature Gran % (Auto) 0.400, Neut % (Auto) 79.1 H, Lymph % (Auto) 9.0 L, [place] % (Auto) 10.5 H, Eos % (Auto) 0.6, Baso % (Auto) 0.4, Absolute Neuts (auto) 10.6 H, Absolute Lymphs (auto) 1.20, Nucleated RBC % 0, Sodium 138, Potassium 3.9, Chloride 104, Carbon Dioxide 19.6 L, Anion Gap 14, BUN 10, Creatinine 0.74, Est GFR (MDRD) Non-Af 83, BUN/Creatinine Ratio 13.8, Glucose 128 H, Calcium 9.4, Total Bilirubin 0.80, AST 16, ALT 9, Alkaline Phosphatase 76, Total Protein 6.7, Albumin 4.0, Globulin 2.7, Albumin/Globulin Ratio 1.5, Lipase 21 07/30/24 10:25: Urine Color Yellow, Urine Clarity Sl. Cloudy, Urine pH 7.0, Ur Specific [place] 1.010, Urine Protein 30 H, Urine Glucose (UA) Normal, Urine Ketones 5 H, Urine Occult Blood 250 H, Urine Nitrite Negative, Urine Bilirubin Negative, Urine Urobilinogen Normal, Ur Leukocyte Esterase 25 H, Urine RBC 10-25 SEEN, Urine WBC 0-5 SEEN, Ur Squamous Epith Cells 0-5 SEEN, Urine Bacteria 1+, Urine Mucus 1+ 07/30/24 11:15: Lactic Acid 1.5 Imaging Radiology Impression Abdomen/Pelvis CT 07/30/24 09:30 IMPRESSION: Small amount of free fluid in the pelvis in a postmenopausal female worrisome for peritonitis but without obvious etiology. Reading Location: [id number] Charges/Coding Visit Charges Inpatient E&M: 53405 Init Hosp L3
[2024-07-30] MEDS: Bisacodyl 10 MG Suppository RC (14:59)
[2024-07-30] MEDS: Cefepime HCl 1 GM in 0.9% Normal Saline (50mL MB+) 50 ML IV ×2 (14:59→21:02)
[2024-07-30] MEDS: oxyCODONE 5 MG Tablet PO ×2 (15:07→20:18)
[2024-07-30] MEDS: Fleet Enema 133 ML RC (17:38)
[2024-07-30] MEDS: Magnesium Citrate 300 ML PO (19:03)
[2024-07-30] MEDS: APIXABAN 5 MG TABLET PO (20:20)
[2024-07-31] VITALS (7 sets, daily range): BP systolic 102–173; BP diastolic 66–90; PULSE 90–99; RESP 15–18; TEMP 36.6–37.2; O2SAT 96–98
[2024-07-31] MEDS: oxyCODONE 5 MG Tablet PO ×2 (04:01→15:04)
[2024-07-31] MEDS: Mag Hydrox/Al Hydrox/Simeth 30 ML UDC 15 ML PO (04:05)
[2024-07-31 04:50] LABS: Absolute Lymphocyte Count 1.16 X10^3/uL (0.83-4.51); Absolute Neutrophil Count 7.3 X10^3/uL (2.0-7.7); Basophil# 0.05 X10^3/uL; Basophil% 0.5 % (0-1); Eosinophil# 0.14 X10^3/uL; Eosinophils% 1.4 % (0-5); Hematocrit 36.2 % (37-47); Hemoglobin 12.1 g/dL (12.0-15.0); Lymphocyte # 1.16 X10^3/ul (0.83-4.51); Lymphocyte % 11.7 % (19-41); Mean Corp Hgb Conc 33.4 g/dL (32-36); Mean Corpuscular Hgb 30.2 pg (27.0-32.0); Mean Corpuscular Volume 90.3 fL (81-99); Mean Platelet Vol. 8.5 fl (6.2-12.0); Monocyte# 1.21 X10^3/uL; Monocyte% 12.2 % (0-10); NRBC Flagged by Analyzer 0 % (0-5); Neutrophil # 7.34 X10^3/uL (2.7-7.7); Neutrophil % 73.8 % (47-70); Platelet Count 268 K/mm3 (150-450); RBC Distribution Width CV 13.4 % (11.6-14.6); RBC Distribution Width SD 44.5 fl (35.1-43.9); Red Blood Count 4.01 M/mm3 (4.2-5.4); White Blood Count 9.9 K/mm3 (4.4-11.0)
[2024-07-31 05:12] LABS: Anion Gap 10 (5-15); BUN 9 mg/dL (4-19); BUN/Creat Ratio 15.5 RATIO (10-20); Calcium,Total 8.2 mg/dL (7.6-11.0); Carbon Dioxide 20.2 mmol/L (21.0-32.0); Chloride 111 mmol/L (98-108); Creatinine, Serum 0.57 mg/dL (0.70-1.20); EST Glomerular Filtration Rate 93 (>60); Estimated Creatinine Clearance 56.85 ml/min (50-250); Glucose 103 mg/dL (70-99); Potassium 3.9 mmol/L (3.3-5.1); Sodium Level 142 mmol/L (133-145)
[2024-07-31] MEDS: Levothyroxine 75 MCG Tablet PO (06:13)
--- NOTE | 2024-07-31 09:50 | RAD_ITS ---
PROCEDURE: ABD DECUB AND/OR ERECT(PORTABL 07/31/2024 REASON FOR EXAM: ABD PAIN TECHNIQUE: Single view abdomen. FINDINGS: Bowel gas: Mildly dilated colon with air-fluid levels possibly consistent with diarrhea. Calcifications: No suspicious calcifications. Bones: The bones are unremarkable. Other: No pneumoperitoneum. RAD/Abd Decub and/or Erect(Portabl IMPRESSION: Suspect diarrhea. No pneumoperitoneum. Reading Location: [id number]
--- NOTE | 2024-07-31 10:18 | PN.SURG_ITS ---
Subjective Subjective Patient seen and evaluated on morning rounds. She states that she is feeling more bloated and having more cramping this morning. This may possibly be related to mag citrate given yesterday. Despite fleets enema, magnesium citrate, Dulcolax, patient has still not produced a bowel movement. I was notified last night by RN that she was having some bleeding from her hemorrhoids. She states her abdominal pain is about the same today as it was yesterday. She denies any fevers or chills. No nausea or vomiting. Objective Data Objective Data Vital Signs: Vital Signs Temp Pulse Resp BP Pulse Ox O2 Del Method 98.8 F 99 15 155/90 H 96 Room Air 07/31/24 03:56 07/31/24 03:56 07/31/24 03:56 07/31/24 03:56 07/31/24 03:56 07/31/24 08:41 Oxygen Delivery Method Room Air Weight: 154 lb Body Mass Index (BMI) 25.6 Intake & Output: Intake and Output for Last 24 Hours 07/29/24 07/30/24 07/31/24 23:59 23:59 23:59 Intake Total 2150 / 2150 1000 / 1000 Balance 2150 / 2150 1000 / 1000 Lab / Micro Data 07/31/24 04:38 07/31/24 04:38 Labs: Laboratory Results - last 24 hr 07/30/24 10:25: Urine Color Yellow, Urine Clarity Sl. Cloudy, Urine pH 7.0, Ur Specific [place] 1.010, Urine Protein 30 H, Urine Glucose (UA) Normal, Urine Ketones 5 H, Urine Occult Blood 250 H, Urine Nitrite Negative, Urine Bilirubin Negative, Urine Urobilinogen Normal, Ur Leukocyte Esterase 25 H, Urine RBC 10-25 SEEN, Urine WBC 0-5 SEEN, Ur Squamous Epith Cells 0-5 SEEN, Urine Bacteria 1+, Urine Mucus 1+ 07/30/24 11:15: Lactic Acid 1.5 07/31/24 04:38: WBC 9.9, RBC 4.01 L, Hgb 12.1, Hct 36.2 L, MCV 90.3, MCH 30.2, MCHC 33.4, RDW Std Deviation 44.5 H, RDW Coeff of Mihaela 13.4, Plt Count 268, MPV 8.5, Immature Gran % (Auto) 0.400, Neut % (Auto) 73.8 H, Lymph % (Auto) 11.7 L, [place] % (Auto) 12.2 H, Eos % (Auto) 1.4, Baso % (Auto) 0.5, Absolute Neuts (auto) 7.3, Absolute Lymphs (auto) 1.16, Nucleated RBC % 0, Sodium 142, Potassium 3.9, Chloride 111 H, Carbon Dioxide 20.2 L, Anion Gap 10, BUN 9, Creatinine 0.57 L, Estim Creat Clear Calc 56.85, Est GFR (MDRD) Non-Af 93, BUN/Creatinine Ratio 15.5, Glucose 103 H, Calcium 8.2 Radiography Diagnostic Testing: Radiology Impression Abdomen/Pelvis CT 07/30/24 09:30 IMPRESSION: Small amount of free fluid in the pelvis in a postmenopausal female worrisome for peritonitis but without obvious etiology. Reading Location: [facility] Abdomen X-Ray 07/31/24 09:50 IMPRESSION: Suspect diarrhea. No pneumoperitoneum. Reading Location: [id number] Physical Exam Narrative She is alert and oriented x 3. She is in no acute distress. Abdomen is mildly distended and exhibits moderate tenderness with palpation. Most of her pain is in the left lower quadrant I did examine her hemorrhoids and she does have pretty significant inflamed external hemorrhoids with some bleeding on her pad. Digital rectal exam was performed. No masses were identified however a golf ball sized piece of stool was removed. I was unable to extract any other stool nor was then there any noted. She again states that she has probably had a colonoscopy within the last 5 to 10 years Assessment & Plan Assessment/Plan (1) Abdominal pain: PLAN: Plan The patient is a 78-year-old female presenting with abdominal pain. I suspect her abdominal pain is more than likely related to chronic constipation. She admits that she does have a significant problem with constipation and admits that she is probably not had a decent bowel movement in about 2 weeks. I did do a attempt at disimpaction today but was only able to remove a golf ball sized segment of stool. Abdominal x-ray was performed and showed some air-fluid levels. Discussed with RN. Will try soapsuds enema as well as lactulose today. Hopefully this will evacuate her stool. Will continue to follow and advise accordingly
[2024-07-31] MEDS: Lactulose 20 GM/30 ML UDC PO (10:29)
[2024-07-31] MEDS: Cefepime HCl 1 GM in 0.9% Normal Saline (50mL MB+) 50 ML IV ×2 (10:31→21:03)
[2024-07-31] MEDS: APIXABAN 5 MG TABLET PO ×2 (10:32→20:57)
[2024-07-31] MEDS: Pantoprazole Sodium 20 MG Tablet PO (10:33)
[2024-07-31] MEDS: Tolterodine Tartrate 2 MG CAP.SA PO (10:33)
[2024-07-31] MEDS: Venlafaxine XR 75 MG Capsule PO (10:33)
[2024-07-31] MEDS: Bisacodyl 10 MG Suppository RC (10:33)
[2024-07-31] MEDS: Cholecalciferol (VIT D3) 25 MCG TABLET (1,000 UNITS) 50 MCG PO (10:34)
[2024-07-31] MEDS: 0.9% Normal Saline (1000mL) 1,000 ML 125 ML IV ×2 (10:39→22:50)
--- NOTE | 2024-07-31 11:34 | PN_ITS ---
Subjective Subjective Patient seen and examined. Says she feels uncomfortable and is still complaining of abdominal pain. She has not been able to have a bowel movement despite receiving enema and suppositories. She denies any nausea or vomiting. Review of systems is otherwise negative. Objective Data Objective Data Vital Signs: Vital Signs Temp Pulse Resp BP Pulse Ox O2 Del Method 98.8 F 99 15 155/90 H 96 Room Air 07/31/24 03:56 07/31/24 03:56 07/31/24 03:56 07/31/24 03:56 07/31/24 03:56 07/31/24 08:41 Oxygen Delivery Method Room Air Weight: 154 lb Body Mass Index (BMI) 25.6 Intake & Output: Intake and Output for Last 24 Hours 07/29/24 07/30/24 07/31/24 23:59 23:59 23:59 Intake Total 2150 / 2150 1050 / 1050 Balance 2150 / 2150 1050 / 1050 Lab / Micro Data 07/31/24 04:38 07/31/24 04:38 Labs: Laboratory Results - last 24 hr 07/30/24 11:15: Lactic Acid 1.5 07/31/24 04:38: WBC 9.9, RBC 4.01 L, Hgb 12.1, Hct 36.2 L, MCV 90.3, MCH 30.2, MCHC 33.4, RDW Std Deviation 44.5 H, RDW Coeff of Mihaela 13.4, Plt Count 268, MPV 8.5, Immature Gran % (Auto) 0.400, Neut % (Auto) 73.8 H, Lymph % (Auto) 11.7 L, [place] % (Auto) 12.2 H, Eos % (Auto) 1.4, Baso % (Auto) 0.5, Absolute Neuts (auto) 7.3, Absolute Lymphs (auto) 1.16, Nucleated RBC % 0, Sodium 142, Potassium 3.9, Chloride 111 H, Carbon Dioxide 20.2 L, Anion Gap 10, BUN 9, Creatinine 0.57 L, Estim Creat Clear Calc 56.85, Est GFR (MDRD) Non-Af 93, BUN/Creatinine Ratio 15.5, Glucose 103 H, Calcium 8.2 Radiography Diagnostic Testing: Radiology Impression Abdomen X-Ray 05/04/25 09:50 IMPRESSION: Suspect diarrhea. No pneumoperitoneum. Reading Location: [facility] Physical Exam Const alert, oriented x3 and no apparent distress General Appearance: cooperative HEENT normocephalic, head/scalp atraumatic, hearing grossly normal bilaterally and moist oral mucous membranes Eyes PERRL, EOMs intact bilaterally and conjunctivae normal Neck no lymphadenopathy and supple Resp normal respiratory effort, normal air movement, no retractions, no use of accessory muscles and clear to auscultation bilaterally Cardio regular rate, regular rhythm, S1 normal heart sound, S2 normal heart sound and no murmurs GI normal to inspection, nondistended, normoactive bowel sounds and soft to palpation GI Narrative: still has moderate generalised tenderness, worse in the left lower quadrant, no guarding or rebound tenderness. Extremity normal to inspection, full ROM, normal capillary refill and no clubbing, cyanosis or edema General Extremity: no tenderness to palpation of joints or extremities Skin General Skin Exam: no breakdown Neuro oriented x3, CN's II-XII intact bilaterally, moves all extremities and no focal motor deficits Motor Exam: strength 5/5 throughout Psych thought process normal, cooperative and affect normal Appearance: appropriate Assessment & Plan Assessment/Plan (1) Abdominal pain: (2) Leukocytosis: PLAN: Plan #Generalised abdominal pain * This is likely due to her severe constipation. * Patient does have chronic constipation and her last bowel movement was about 3 days ago. Before then she had gone about 2 weeks without really having a bowel movement. She states this is normal for her * She had a small bowel movement 3 days ago after she had MiraLAX. * CT of the abdomen done with IV contrast showed small amount of free fluid in the pelvis in a postmenopausal female worrisome for peritonitis but without obvious etiology. * General surgery on board and is concerned that this could be due to a stercoral ulcer or stercoral colitis in light of the severe constipation. Patient received suppositories and MiraLAX as well as an enema yesterday but still has not had a bowel movement. * Further management of severe constipation as per general surgery. * Continue hydration with IV fluids. * #History of breast cancer: Stable #GERD: On PPI #Depression: On venlafaxine #Hypothyroidism: On Synthroid #DVT prophylaxis: On Eliquis Charges/Coding Visit Charges Inpatient E&M: 47505 Subs Hosp L2
[2024-07-31] MEDS: Ondansetron 4 MG/2 ML Vial IV (15:05)
[2024-08-01 03:00] VITALS: BP 127/70; PULSE 88; RESP 15; TEMP 36.5; O2SAT 99
[2024-08-01] MEDS: Levothyroxine 75 MCG Tablet PO (06:32)
[2024-08-01] MEDS: 0.9% Normal Saline (1000mL) 1,000 ML 125 ML IV ×2 (07:01→16:41)
[2024-08-01 07:57] LABS: Absolute Lymphocyte Count 0.96 X10^3/uL (0.83-4.51); Absolute Neutrophil Count 3.1 X10^3/uL (2.0-7.7); Basophil# 0.03 X10^3/uL; Basophil% 0.6 % (0-1); Eosinophil# 0.19 X10^3/uL; Eosinophils% 3.8 % (0-5); Hematocrit 33.7 % (37-47); Lymphocyte # 0.96 X10^3/ul (0.83-4.51); Lymphocyte % 19.2 % (19-41); Mean Corp Hgb Conc 32.6 g/dL (32-36); Mean Corpuscular Hgb 30.1 pg (27.0-32.0); Mean Corpuscular Volume 92.3 fL (81-99); Mean Platelet Vol. 9.1 fl (6.2-12.0); Monocyte# 0.64 X10^3/uL; Monocyte% 12.8 % (0-10); NRBC Flagged by Analyzer 0 % (0-5); Neutrophil # 3.12 X10^3/uL (2.7-7.7); Neutrophil % 62.6 % (47-70); Platelet Count 235 K/mm3 (150-450); RBC Distribution Width CV 13.2 % (11.6-14.6); RBC Distribution Width SD 44.4 fl (35.1-43.9); Red Blood Count 3.65 M/mm3 (4.2-5.4)
--- NOTE | 2024-08-01 08:33 | PCM.PN.SRG ---
Subjective Subjective Patient evaluated resting comfortably in bed. She notes soreness in the epigastric and left lower quadrant region with palpation. She notes continued to feel slightly bloated. She notes overall since admission she is feeling better. She denies nausea. She notes feeling thirsty. Her last bpwel movement was this morning. Objective Data Objective Data Vital Signs: Vital Signs Temp Pulse Resp BP Pulse Ox O2 Del Method 97.7 F L 88 15 127/70 H 99 Room Air 08/01/24 03:00 08/01/24 03:00 08/01/24 03:00 08/01/24 03:00 08/01/24 03:00 08/01/24 03:00 Oxygen Delivery Method Room Air Weight: 154 lb Body Mass Index (BMI) 25.6 Intake & Output: Intake and Output for Last 24 Hours 07/30/24 07/31/24 08/01/24 23:59 23:59 23:59 Intake Total 2150 / 2150 2250.00 / 2250.00 1000 / 1000 Balance 2150 / 2150 2250.00 / 2250.00 1000 / 1000 Lab / Micro Data 08/01/24 06:48 07/31/24 04:38 Labs: Laboratory Results - last 24 hr 08/01/24 06:48: WBC 5.0, RBC 3.65 L, Hgb 11.0 L, Hct 33.7 L, MCV 92.3, MCH 30.1, MCHC 32.6, RDW Std Deviation 44.4 H, RDW Coeff of Mihaela 13.2, Plt Count 235, MPV 9.1, Immature Gran % (Auto) 1.000 H, Neut % (Auto) 62.6, Lymph % (Auto) 19.2, [place] % (Auto) 12.8 H, Eos % (Auto) 3.8, Baso % (Auto) 0.6, Absolute Neuts (auto) 3.1, Absolute Lymphs (auto) 0.96, Nucleated RBC % 0 Radiography Diagnostic Testing: Radiology Impression Abdomen X-Ray 07/31/24 09:50 IMPRESSION: Suspect diarrhea. No pneumoperitoneum. Reading Location: [id number] Physical Exam GI GI Narrative: Abdomen- slightly distended, soft. Tenderness in the epigastric region and left lower quadrant with palpation. Positive bowel sounds. Assessment & Plan Assessment/Plan (1) Constipation: (2) Abdominal pain: PLAN: Plan I am following this patient in conjunction with Dr. Matute. he will independently evaluate this patient. Labs pending. Continue lactulose and rectal suppository Multiple successful bowel movements late yesterday into this morning Overall patient is improving Will advance to clear liquids and add Ensure clear this morning We will continue to monitor this patient Possible discharge later today or tomorrow Charges/Coding Visit Charges Inpatient E&M: 81192 Subs Hosp L2
[2024-08-01 08:39] VITALS: BP 126/72; PULSE 75; RESP 18; TEMP 37; O2SAT 100
[2024-08-01] MEDS: Venlafaxine XR 75 MG Capsule PO (08:46)
[2024-08-01] MEDS: APIXABAN 5 MG TABLET PO ×2 (08:46→22:06)
[2024-08-01] MEDS: Tolterodine Tartrate 2 MG CAP.SA PO (08:46)
[2024-08-01] MEDS: Lactulose 20 GM/30 ML UDC 10 GM PO ×2 (08:48→22:06)
[2024-08-01] MEDS: Bisacodyl 10 MG Suppository RC (08:48)
[2024-08-01 09:09] LABS: Anion Gap 8 (5-15); BUN 7 mg/dL (4-19); BUN/Creat Ratio 13.7 RATIO (10-20); Calcium,Total 8.1 mg/dL (7.6-11.0); Carbon Dioxide 22.5 mmol/L (21.0-32.0); Chloride 109 mmol/L (98-108); Creatinine, Serum 0.51 mg/dL (0.70-1.20); EST Glomerular Filtration Rate 95 (>60); Estimated Creatinine Clearance 56.85 ml/min (50-250); Glucose 80 mg/dL (70-99); Potassium 3.7 mmol/L (3.3-5.1); Sodium Level 140 mmol/L (133-145)
--- NOTE | 2024-08-01 10:10 | CASEMGMT ---
Discharge Planning Pt states that she has HC POA and LW. They were competed at [facility] and she doesn't recall getting original or copy. She will ask her to look for them. She would be interested in re-doing them if unable to find. SW updated. Annabel Rose DC Planning Asst.
[2024-08-01] MEDS: Cefepime HCl 1 GM in 0.9% Normal Saline (50mL MB+) 50 ML IV ×2 (10:45→22:02)
[2024-08-01] MEDS: Pantoprazole Sodium 20 MG Tablet PO (10:50)
[2024-08-01] MEDS: Cholecalciferol (VIT D3) 25 MCG TABLET (1,000 UNITS) 50 MCG PO (10:50)
--- NOTE | 2024-08-01 11:18 | PN_ITS ---
Subjective Subjective Patient seen and examined. She said her abdominal pain had improved though still present. She had several bowel movements overnight. Review of systems otherwise negative. Objective Data Objective Data Vital Signs: Vital Signs Temp Pulse Resp BP Pulse Ox O2 Del Method 98.6 F 75 18 126/72 H 100 Room Air 08/01/24 08:39 08/01/24 08:39 08/01/24 08:39 08/01/24 08:39 08/01/24 08:39 08/01/24 08:39 Oxygen Delivery Method Room Air Weight: 154 lb Body Mass Index (BMI) 25.6 Intake & Output: Intake and Output for Last 24 Hours 07/30/24 07/31/24 08/01/24 23:59 23:59 23:59 Intake Total 2150 / 2150 2250.00 / 2250.00 1477.08 / 1477.08 Balance 2150 / 2150 2250.00 / 2250.00 1477.08 / 1477.08 Lab / Micro Data 08/01/24 06:48 08/01/24 06:48 Labs: Laboratory Results - last 24 hr 08/01/24 06:48: WBC 5.0, RBC 3.65 L, Hgb 11.0 L, Hct 33.7 L, MCV 92.3, MCH 30.1, MCHC 32.6, RDW Std Deviation 44.4 H, RDW Coeff of Mihaela 13.2, Plt Count 235, MPV 9.1, Immature Gran % (Auto) 1.000 H, Neut % (Auto) 62.6, Lymph % (Auto) 19.2, M [place] % (Auto) 12.8 H, Eos % (Auto) 3.8, Baso % (Auto) 0.6, Absolute Neuts (auto) 3.1, Absolute Lymphs (auto) 0.96, Nucleated RBC % 0, Sodium 140, Potassium 3.7, Chloride 109 H, Carbon Dioxide 22.5, Anion Gap 8, BUN 7, Creatinine 0.51 L, Estim Creat Clear Calc 56.85, Est GFR (MDRD) Non-Af 95, BUN/Creatinine Ratio 13.7, Glucose 80, Calcium 8.1 Physical Exam Const alert, oriented x3, no apparent distress and well nourished General Appearance: cooperative HEENT normocephalic, head/scalp atraumatic, hearing grossly normal bilaterally and moist oral mucous membranes Eyes PERRL, EOMs intact bilaterally and conjunctivae normal Neck no lymphadenopathy and supple Lymph Lymphatic: no lymphadenopathy noted and no lymphedema noted Resp normal respiratory effort, normal air movement, no retractions, no use of accessory muscles and clear to auscultation bilaterally Cardio regular rate, regular rhythm, S1 normal heart sound, S2 normal heart sound and no murmurs GI normal to inspection, nondistended, normoactive bowel sounds and soft to palpation GI Narrative: abdominal tenderness has improved markedly, no guarding or rebound tenderness. Extremity normal to inspection, full ROM, normal capillary refill and no clubbing, cyanosis or edema General Extremity: no tenderness to palpation of joints or extremities Skin General Skin Exam: no breakdown and turgor normal Neuro oriented x3, CN's II-XII intact bilaterally, moves all extremities and no focal motor deficits Motor Exam: strength 5/5 throughout and general weakness Psych thought process normal, cooperative and affect normal Appearance: appropriate Assessment & Plan Assessment/Plan (1) Abdominal pain: (2) Leukocytosis: PLAN: Plan #Generalised abdominal pain * This is likely due to her severe constipation. * Had several large bowel movements overnight and abdominal pain has improved. * CT of the abdomen done with IV contrast showed small amount of free fluid in the pelvis in a postmenopausal female worrisome for peritonitis but without obvious etiology. * General surgery on board. Concern for stercoral ulcer or stercoral colitis in light of the severe constipation. * Continue laxatives as needed. * Placed on clear liquid diet today. To advance as tolerated. General surgery. * Patient does feel bloated still. Patient was urged to continue lactulose and suppositories. * * #History of breast cancer: Stable #GERD: On PPI #Depression: On venlafaxine #Hypothyroidism: On Synthroid #DVT prophylaxis: On Eliquis Disposition: Anticipate discharge over the next 24 to 48 hours. Charges/Coding Visit Charges Inpatient E&M: 13373 Subs Hosp L2
[2024-08-01 11:46] VITALS: BMI 25.9
[2024-08-01] MEDS: Ensure Clear 120 ML Liquid PO ×2 (12:40→16:41)
[2024-08-01 14:19] VITALS: BP 130/73; PULSE 87; RESP 18; TEMP 37; O2SAT 98
[2024-08-01] MEDS: Ondansetron 4 MG/2 ML Vial IV (20:16)
[2024-08-01] MEDS: 0.9% Saline Lock 10 ML Syringe IV (20:16)
[2024-08-01 22:01] VITALS: BP 132/70; PULSE 85; RESP 16; TEMP 37; O2SAT 100
[2024-08-02] MEDS: 0.9% Saline Lock 10 ML Syringe IV ×3 (01:13→22:22)
[2024-08-02] MEDS: 0.9% Normal Saline (1000mL) 1,000 ML 125 ML IV (01:14)
[2024-08-02 03:45] VITALS: BP 128/76; PULSE 82; RESP 16; TEMP 36.7; O2SAT 96
[2024-08-02 06:19] LABS: Absolute Lymphocyte Count 1.03 X10^3/uL (0.83-4.51); Absolute Neutrophil Count 3.1 X10^3/uL (2.0-7.7); Basophil# 0.04 X10^3/uL; Basophil% 0.8 % (0-1); Eosinophils% 3.9 % (0-5); Hemoglobin 10.5 g/dL (12.0-15.0); Lymphocyte # 1.03 X10^3/ul (0.83-4.51); Lymphocyte % 20.3 % (19-41); Mean Corp Hgb Conc 33.9 g/dL (32-36); Mean Corpuscular Hgb 30.3 pg (27.0-32.0); Mean Corpuscular Volume 89.3 fL (81-99); Mean Platelet Vol. 8.7 fl (6.2-12.0); Monocyte# 0.72 X10^3/uL; Monocyte% 14.2 % (0-10); NRBC Flagged by Analyzer 0 % (0-5); Neutrophil # 3.06 X10^3/uL (2.7-7.7); Neutrophil % 60.2 % (47-70); Platelet Count 224 K/mm3 (150-450); RBC Distribution Width SD 42.4 fl (35.1-43.9); Red Blood Count 3.47 M/mm3 (4.2-5.4); White Blood Count 5.1 K/mm3 (4.4-11.0)
[2024-08-02 06:46] LABS: Anion Gap 8 (5-15); BUN 3 mg/dL (4-19); BUN/Creat Ratio 5.3 RATIO (10-20); Calcium,Total 7.8 mg/dL (7.6-11.0); Carbon Dioxide 22.1 mmol/L (21.0-32.0); Chloride 113 mmol/L (98-108); Creatinine, Serum 0.52 mg/dL (0.70-1.20); EST Glomerular Filtration Rate 95 (>60); Glucose 90 mg/dL (70-99); Potassium 3.3 mmol/L (3.3-5.1); Sodium Level 143 mmol/L (133-145)
[2024-08-02] MEDS: Levothyroxine 75 MCG Tablet PO (06:50)
--- NOTE | 2024-08-02 07:20 | PN.SURG_ITS ---
Subjective Subjective Patient evaluated resting comfortably in bed. She notes having abdominal cramping and discomfort last night. She notes her last bowel movement was yesterday morning. She states she is still passing flatus. She denies any nausea, vomiting. Objective Data Objective Data Vital Signs: Vital Signs Temp Pulse Resp BP Pulse Ox O2 Del Method 98.1 F 82 16 128/76 H 96 Room Air 08/02/24 03:45 08/02/24 03:45 08/02/24 03:45 08/02/24 03:45 08/02/24 03:45 08/02/24 03:45 Oxygen Delivery Method Room Air Weight: 156 lb 1.396 oz Body Mass Index (BMI) 25.9 Intake & Output: Intake and Output for Last 24 Hours 07/31/24 08/01/24 08/02/24 23:59 23:59 23:59 Intake Total 2250.00 / 2250.00 2220.00 / 2220.00 1000 / 1000 Balance 2250.00 / 2250.00 2220.00 / 2220.00 1000 / 1000 Lab / Micro Data 08/02/24 06:00 08/02/24 06:00 Labs: Laboratory Results - last 24 hr 08/01/24 06:48: WBC 5.0, RBC 3.65 L, Hgb 11.0 L, Hct 33.7 L, MCV 92.3, MCH 30.1, MCHC 32.6, RDW Std Deviation 44.4 H, RDW Coeff of Mihaela 13.2, Plt Count 235, MPV 9.1, Immature Gran % (Auto) 1.000 H, Neut % (Auto) 62.6, Lymph % (Auto) 19.2, M desire % (Auto) 12.8 H, Eos % (Auto) 3.8, Baso % (Auto) 0.6, Absolute Neuts (auto) 3.1, Absolute Lymphs (auto) 0.96, Nucleated RBC % 0, Sodium 140, Potassium 3.7, Chloride 109 H, Carbon Dioxide 22.5, Anion Gap 8, BUN 7, Creatinine 0.51 L, Estim Creat Clear Calc 56.85, Est GFR (MDRD) Non-Af 95, BUN/Creatinine Ratio 13.7, Glucose 80, Calcium 8.1 08/02/24 06:00: WBC 5.1, RBC 3.47 L, Hgb 10.5 L, Hct 31.0 L, MCV 89.3, MCH 30.3, MCHC 33.9, RDW Std Deviation 42.4, RDW Coeff of Mihaela 13.0, Plt Count 224, MPV 8.7, Immature Gran % (Auto) 0.600, Neut % (Auto) 60.2, Lymph % (Auto) 20.3, [place] % (Auto) 14.2 H, Eos % (Auto) 3.9, Baso % (Auto) 0.8, Absolute Neuts (auto) 3.1, Absolute Lymphs (auto) 1.03, Nucleated RBC % 0, Sodium 143, Potassium 3.3, C hloride 113 H, Carbon Dioxide 22.1, Anion Gap 8, BUN 3 L, Creatinine 0.52 L, Estim Creat Clear Calc 57.20, Est GFR (MDRD) Non-Af 95, BUN/Creatinine Ratio 5.3 L, Glucose 90, Calcium 7.8 Micro: Microbiology 07/30/24 11:18 Blood Culture (Wb) - Right Wrist Blood Culture - Preliminary No growth in 48 hours. 07/30/24 11:15 Blood Culture (Wb) - Left Wrist Blood Culture - Preliminary No growth in 48 hours. Physical Exam GI GI Narrative: Abdomen- soft, slight distention. Tenderness in the left lower quadrant. Positive bowel sounds. Assessment & Plan Assessment/Plan (1) Constipation: PLAN: I am following this patient in conjunction with Dr. Matute. He will independently evaluate this patient. Lab work reviewed. Advance patient to full liquids and possible transitional diet later today Plan to order KUB this morning Patient will likely need a colonoscopy as an outpatient Discussed patient with Dr. Murry Hopeful discharge later today Charges/Coding Visit Charges Inpatient E&M: 40256 Subs Hosp L2
--- NOTE | 2024-08-02 08:35 | RAD_ITS ---
PROCEDURE: ABD INC DECUB AND/OR ERECT 08/02/2024 REASON FOR EXAM: ABDOMINAL DISTENTION TECHNIQUE: AP supine and erect views of the abdomen were obtained. COMPARISON: 07/31/2024 FINDINGS: Improved mildly dilated colonic loops, now up to 5.9 cm, previously roughly 6.9 cm. Air-fluid levels again noted. No definitive small bowel dilatation. Colonic stool burden appears low. Similar presumed pelvic phleboliths. Suspect demineralization. Lumbar spondylosis and trace levoscoliosis which may be positional. Suspect RIGHT basilar airspace disease, not well evaluated. Surgical clips and/or biopsy markers in the LEFT chest wall. RAD/Abd Inc Decub and/or Erect IMPRESSION: 1. Findings suggest ongoing malabsorption/diarrhea and slightly improved associ ated colonic ileus. 2. Suspect RIGHT basilar airspace disease, not well evaluated. Correlate with dedicated imaging of the chest such as PA and lateral chest radiographs. Clinical evaluation and recommend Reading Location: [id number]
[2024-08-02 09:30] VITALS: BP 152/77; PULSE 93; RESP 18; TEMP 37.1; O2SAT 97
[2024-08-02] MEDS: Pantoprazole Sodium 20 MG Tablet PO (09:34)
[2024-08-02] MEDS: Tolterodine Tartrate 2 MG CAP.SA PO (09:34)
[2024-08-02] MEDS: Venlafaxine XR 75 MG Capsule PO (09:34)
[2024-08-02] MEDS: Cholecalciferol (VIT D3) 25 MCG TABLET (1,000 UNITS) 50 MCG PO (09:35)
[2024-08-02] MEDS: Lactulose 20 GM/30 ML UDC 10 GM PO ×2 (09:35→22:20)
[2024-08-02] MEDS: APIXABAN 5 MG TABLET PO ×2 (09:35→22:20)
[2024-08-02] MEDS: Ondansetron 4 MG/2 ML Vial IV (11:03)
[2024-08-02 14:03] VITALS: BP 153/73; PULSE 90; RESP 18; TEMP 37.1; O2SAT 96
--- NOTE | 2024-08-02 19:14 | PCM.PN.HOSP ---
Reason for Visit Reason for Visit: Abdominal pain Subjective Subjective Abdominal pain is still present but a little bit better. States she was feeling well but then ate her breakfast and is now having some nausea. Discussed with general surgery and they are going to back her diet off some back to clears. Had large bowel movement yesterday and a small bowel movement this morning. Objective Data Objective Data Vital Signs: Vital Signs Temp Pulse Resp BP Pulse Ox O2 Del Method 98.7 F 90 18 153/73 H 96 Room Air 08/02/24 14:03 08/02/24 14:03 08/02/24 14:03 08/02/24 14:03 08/02/24 14:03 08/02/24 14:03 Oxygen Delivery Method Room Air Weight: 70.8 kg Body Mass Index (BMI) 25.9 Intake & Output: Intake and Output for Last 24 Hours 07/31/24 08/01/24 08/02/24 23:59 23:59 23:59 Intake Total 2250.00 / 2250.00 2220.00 / 2220.00 1868.75 / 1868.75 Balance 2250.00 / 2250.00 2220.00 / 2220.00 1868.75 / 1868.75 Lab / Micro Data 08/02/24 06:00 08/02/24 06:00 Labs: Laboratory Results - last 24 hr 08/02/24 06:00: WBC 5.1, RBC 3.47 L, Hgb 10.5 L, Hct 31.0 L, MCV 89.3, MCH 30.3, MCHC 33.9, RDW Std Deviation 42.4, RDW Coeff of Mihaela 13.0, Plt Count 224, MPV 8.7, Immature Gran % (Auto) 0.600, Neut % (Auto) 60.2, Lymph % (Auto) 20.3, [place] % (Auto) 14.2 H, Eos % (Auto) 3.9, Baso % (Auto) 0.8, Absolute Neuts (auto) 3.1, Absolute Lymphs (auto) 1.03, Nucleated RBC % 0, Sodium 143, Potassium 3.3, Chloride 113 H, Carbon Dioxide 22.1, Anion Gap 8, BUN 3 L, Creatinine 0.52 L, Estim Creat Clear Calc 57.20, Est GFR (MDRD) Non-Af 95, BUN/Creatinine Ratio 5.3 L, Glucose 90, Calcium 7.8 Micro: Microbiology 07/31/24 10:20 Urine, Clean Catch Urine Culture - Final Culture exhibits no growth. 07/30/24 11:18 Blood Culture (Wb) - Right Wrist Blood Culture - Preliminary No growth in 48 hours. 07/30/24 11:15 Blood Culture (Wb) - Left Wrist Blood Culture - Preliminary No growth in 48 hours. Radiography Diagnostic Testing: Radiology Impression Abdomen X-Ray 08/02/24 08:35 IMPRESSION: 1. Findings suggest ongoing malabsorption/diarrhea and slightly improved associated colonic ileus. 2. Suspect RIGHT basilar airspace disease, not well evaluated. Correlate with dedicated imaging of the chest such as PA and lateral chest radiographs. Clinical evaluation and recommend Reading Location: [id number] Physical Exam Const alert, oriented x3, no apparent distress, average body habitus and well nourished Constitutional Narrative: Older, white female, lying in bed, does not appear particularly uncomfortable at this time but does not appear like she is feeling 100% either, at bedside, does not appear toxic HEENT head/scalp atraumatic and moist oral mucous membranes HEENT Narrative: Mallampati 2, no thrush Head and Scalp: normocephalic Resp normal respiratory effort, no retractions, no use of accessory muscles and clear to auscultation bilaterally Auscultation: Negative for rales, rhonchi or wheezes Cardio regular rate, regular rhythm, S1 normal heart sound, S2 normal heart sound, no murmurs, no rub, no gallops and no clicks GI normal to inspection, nondistended, normoactive bowel sounds and soft to palpation GI Narrative: Mild diffuse tenderness worse at bilateral lower quadrants and across lower abdominal region/pelvic region Extremity no clubbing, cyanosis or edema Extremity Narrative: 2+ pedal and radial pulses Neuro oriented x3, moves all extremities and no focal motor deficits Speech: speech normal Psych Psych Narrative: Affect is slightly flat but eye contact is good and patient interacts appropriately Assessment & Plan Assessment/Plan (1) Constipation: (2) Leukocytosis: (3) Abdominal pain: PLAN: Plan Constipation - Patient producing stools and has flatus - Had nausea and cramping after eating - Diet was advanced however backed down to clear liquid when she had worsening nausea after eating - Continue lactulose and suppositories as ordered by general surgery - Still stool in the colon on KUB with areas of possible thickening in the sigmoid colon - Outpatient colonoscopy has been recommended after discharge - Hopeful for discharge tomorrow as long as she continues to clinically improve without any regression - Check TSH Anemia - Has slowly trended down however patient's been on IV fluids - Now that she is on clear liquid diets will discontinue IV fluids - Repeat CBC in a.m. Leukocytosis - Resolved - Did appear to be mildly hemoconcentrated on presentation Hypothyroidism - Continue home levothyroxine - With ongoing constipation issues will check TSH in a.m. GERD - Continue home PPI Urinary incontinence Can continue trospium History of breast cancer - No current issues History of pulmonary emboli - Diagnosed in 2021 - Continue Eliquis 5 mg p.o. twice daily Depression - Continue home venlafaxine DVT prophylaxis - continue Eliquis CODE STATUS - Full code Charges/Coding Visit Charges Inpatient E&M: 37241 Subs Hosp L2
[2024-08-02 22:14] VITALS: BP 126/85; PULSE 82; RESP 16; TEMP 37.1; O2SAT 99
[2024-08-03 04:01] VITALS: BP 122/82; PULSE 82; RESP 16; TEMP 36.9; O2SAT 98
[2024-08-03 06:03] LABS: Absolute Lymphocyte Count 1.26 X10^3/uL (0.83-4.51); Absolute Neutrophil Count 3.3 X10^3/uL (2.0-7.7); Basophil# 0.07 X10^3/uL; Basophil% 1.3 % (0-1); Eosinophil# 0.22 X10^3/uL; Eosinophils% 3.9 % (0-5); Hematocrit 34.4 % (37-47); Hemoglobin 11.7 g/dL (12.0-15.0); Lymphocyte # 1.26 X10^3/ul (0.83-4.51); Lymphocyte % 22.6 % (19-41); Mean Corpuscular Hgb 30.5 pg (27.0-32.0); Mean Corpuscular Volume 89.6 fL (81-99); Mean Platelet Vol. 9.2 fl (6.2-12.0); Monocyte# 0.71 X10^3/uL; Monocyte% 12.7 % (0-10); NRBC Flagged by Analyzer 0 % (0-5); Neutrophil # 3.28 X10^3/uL (2.7-7.7); Platelet Count 293 K/mm3 (150-450); RBC Distribution Width CV 12.9 % (11.6-14.6); Red Blood Count 3.84 M/mm3 (4.2-5.4); White Blood Count 5.6 K/mm3 (4.4-11.0)
[2024-08-03] MEDS: Levothyroxine 75 MCG Tablet PO (06:08)
[2024-08-03 06:38] LABS: Magnesium 2.5 mg/dL (1.5-2.2); Phosphorus 3.2 mg/dL (2.7-4.5)
[2024-08-03 06:56] LABS: ALB/GLOB Ratio 1.3 RATIO (0.9-2.4); AST(SGOT) 18 U/L (<=31); Alanine Aminotransfer ALT/SGPT 7 U/L (<=34); Albumin, Serum 3.2 g/dL (3.4-4.8); Alkaline Phosphatase 60 U/L (35-104); Anion Gap 10 (5-15); BUN 2 mg/dL (4-19); BUN/Creat Ratio 4.3 RATIO (10-20); Calcium,Total 8.3 mg/dL (7.6-11.0); Chloride 110 mmol/L (98-108); Creatinine, Serum 0.55 mg/dL (0.70-1.20); EST Glomerular Filtration Rate 94 (>60); Globulin 2.4 g/dL (2.2-4.2); Glucose 84 mg/dL (70-99); Potassium 3.4 mmol/L (3.3-5.1); Protein, Total 5.5 g/dL (5.9-8.4); Sodium Level 142 mmol/L (133-145); Total Bilirubin 0.27 mg/dL (0.00-1.30)
--- NOTE | 2024-08-03 07:24 | PN.SURG_ITS ---
Subjective Subjective Patient evaluated resting comfortably in bed. She notes being able to get a good nights sleep last night. She denies any nausea or abdominal pain. She noted having two small bowel movements yesterday. She voices readiness to be discharged later today if tolerating diet. Objective Data Objective Data Vital Signs: Vital Signs Temp Pulse Resp BP Pulse Ox O2 Del Method 98.5 F 82 16 122/82 H 98 Room Air 08/03/24 04:01 08/03/24 04:01 08/03/24 04:01 08/03/24 04:01 08/03/24 04:01 08/03/24 04:01 Oxygen Delivery Method Room Air Weight: 156 lb 1.396 oz Body Mass Index (BMI) 25.9 Intake & Output: Intake and Output for Last 24 Hours 08/01/24 08/02/24 08/03/24 23:59 23:59 23:59 Intake Total 2220.00 / 2220.00 1868.75 / 1868.75 Balance 2220.00 / 2220.00 1868.75 / 1868.75 Lab / Micro Data 08/03/24 05:15 08/03/24 05:15 Labs: Laboratory Results - last 24 hr 08/03/24 05:15: WBC 5.6, RBC 3.84 L, Hgb 11.7 L, Hct 34.4 L, MCV 89.6, MCH 30.5, MCHC 34.0, RDW Std Deviation 42.0, RDW Coeff of Mihaela 12.9, Plt Count 293, MPV 9.2, Immature Gran % (Auto) 0.500, Neut % (Auto) 59.0, Lymph % (Auto) 22.6, [place] % (Auto) 12.7 H, Eos % (Auto) 3.9, Baso % (Auto) 1.3 H, Absolute Neuts (auto) 3.3, Absolute Lymphs (auto) 1.26, Nucleated RBC % 0, Sodium 142, Potassium 3.4, Chloride 110 H, Carbon Dioxide 22.0, Anion Gap 10, BUN 2 L, Creatinine 0.55 L, Estim Creat Clear Calc 57.20, Est GFR (MDRD) Non-Af 94, BUN/Creatinine Ratio 4.3 L, Glucose 84, Calcium 8.3, Phosphorus 3.2, Magnesium 2.5 H, Total Bilirubin 0.27, AST 18, ALT 7, Alkaline Phosphatase 60, Total Protein 5.5 L, Albumin 3.2 L , Globulin 2.4, Albumin/Globulin Ratio 1.3, TSH 1.670 Micro: Microbiology 07/31/24 10:20 Urine, Clean Catch Urine Culture - Final Culture exhibits no growth. 07/30/24 11:18 Blood Culture (Wb) - Right Wrist Blood Culture - Preliminary No growth in 48 hours. 07/30/24 11:15 Blood Culture (Wb) - Left Wrist Blood Culture - Preliminary No growth in 48 hours. Radiography Diagnostic Testing: Radiology Impression Abdomen X-Ray 08/02/24 08:35 IMPRESSION: 1. Findings suggest ongoing malabsorption/diarrhea and slightly improved associated colonic ileus. 2. Suspect RIGHT basilar airspace disease, not well evaluated. Correlate with dedicated imaging of the chest such as PA and lateral chest radiographs. Clinical evaluation and recommend Reading Location: [facility] Physical Exam GI GI Narrative: Abdomen- soft, nontender. Positive bowel sounds. Assessment & Plan Assessment/Plan (1) Constipation: (2) Abdominal pain: PLAN: Plan I am following this patient in conjunction with Dr. Matute. Labs reviewed. Increase diet to full liquids and then transitional at lunchtime Would plan to send patient home on a low fiber diet, soft food diet Recommend Miralax BID at discharge; indefinitely at this time Follow-up with Dr. Matute in 2 weeks for a consult to schedule a colonoscopy Probable discharge today Charges/Coding Visit Charges Inpatient E&M: 64143 Subs Hosp L2
[2024-08-03 09:05] VITALS: BP 128/72; PULSE 88; RESP 18; TEMP 36.9; O2SAT 99
[2024-08-03] MEDS: Lactulose 20 GM/30 ML UDC 10 GM PO (09:10)
[2024-08-03] MEDS: Venlafaxine XR 75 MG Capsule PO (09:10)
[2024-08-03] MEDS: APIXABAN 5 MG TABLET PO (09:10)
[2024-08-03] MEDS: Pantoprazole Sodium 20 MG Tablet PO (09:10)
[2024-08-03] MEDS: Tolterodine Tartrate 2 MG CAP.SA PO (09:10)
[2024-08-03] MEDS: Cholecalciferol (VIT D3) 25 MCG TABLET (1,000 UNITS) 50 MCG PO (09:10)
[2024-08-03] MEDS: Bisacodyl 10 MG Suppository RC (10:49)
--- NOTE | 2024-08-03 12:24 | CASEMGMT ---
RN CM into pt room, pt sitting up in bed in no distress. Pt anxious to dc home. Pt denies any homegoing needs. She is up indep in room but has DME at home should she need it.
--- NOTE | 2024-08-03 13:40 | PCM.DC ---
Discharge Instructions Diet Discharge Diet: - (low fiber diet. See below) DC O2, CPAP, BIPAP needs Home O2 Discharge instructions: No Follow Up Care Please Follow Up With: Jarad Matute MD When: 2 weeks. Please call [phone], option #2 to schedule an appointment Test Results: Test results from this visit will be discussed in further detail at your follow-up appointment, if applicable. Discharge Plan Admission Admit Date/Time: 07/30/24 11:42 Attending Provider: Mery Murry Primary Care Provider: Jessenia Spring Consulting Providers: Jarad Matute; Mae Trevizo Instructions Additional Instructions / Restrictions: Recommend 2 week follow-up with Dr. Matute in the office to schedule a colonoscopy. Please contact our office at [phone], option #2 to schedule an appointment. Recommend a capful of Miralax twice a day to assist with bowel movements and stay hydrated Below is an example of the recommended low fiber diet for the next 2 weeks. Once evaluated in the office, may discuss any further diet restrictions. What are low-fiber foods? If your doctor tells you to follow a low-fiber diet, here are low-fiber foods you can eat and higher-fiber foods you should avoid. Remember to always choose foods that you would normally eat. Do not try any foods that caused you discomfort or allergic reactions in the past. If you are on a ?low-residue diet,? your food choices are even more restricted than those listed below. Talk with your cancer care team or dietitian if you have questions about certain foods or amounts. Meat, fish, poultry, and protein Eat: Tender cuts of meat Ground meat Tofu Fish and shellfish Smooth peanut butter Eggs Bake, broil, or poach meats, and use mild seasonings. Try preparing meats as stews, roasts, meatloaves, casseroles, sandwiches, and soups using ingredients on the approved lists. Scramble, poach, or boil eggs; or make omelets, souffl?s, custard, puddings, and casseroles, using ingredients noted below. You might want to ask your doctor, nurse, or dietitian about other foods may be OK for you to eat, and find out when you can go back to your normal diet. Avoid: All beans, nuts, peas, lentils, and legumes Processed meats, hot dogs, sausage, and cold cuts Tough meats with gristle Dairy: Milk and cheese Eat: Only in small to medium amounts and only if they don?t cause problems for you Milk, chocolate milk, buttermilk, and milk drinks Yogurt without seeds or granola Sour cream Cheese Cottage cheese Custard or pudding Ice cream or frozen desserts (without nuts) Cream sauces, soups, and casseroles You can use these items in desserts, snacks, or breads. Bread, cereals, and grains Eat: White breads, waffles, [place] toast, plain white rolls, or white bread toast Pretzels Plain pasta or noodles White rice Crackers, zwieback, margaret, and matzoh (no cracked wheat or whole grains) Cereals without whole grains, added fiber, seeds, raisins, or other dried fruit Use white flour for baking and making sauces. Grains, such as white rice, Cream of Wheat, or grits, should be well-cooked. Include the above grains in casseroles, dumplings, souffl?s, cheese strata, kugels, and pudding. Avoid any food that contains: Brown or wild rice Whole grains, cracked grains, or whole wheat products Kasha (buckwheat) Cornbread or cornmeal Jalil crackers Bran Wheat germ Nuts Granola Coconut Dried fruit Seeds Vegetables and potatoes Eat: Tender, well-cooked fresh or canned vegetables without seeds, stems, or skins Cooked sweet or white potatoes without skins Strained vegetable juices without pulp or spices You can also eat these with cream sauces, or in soups, souffl?s, kugels, and casseroles. Avoid: All raw or steamed vegetables All types of beans Potatoes with skin Peas [place] Cabbage, broccoli, cauliflower, [place] sprouts, and greens Sauerkraut Onions Fruits and desserts Eat: Soft canned or cooked fruit without seeds or skins (small amounts) Small amounts of well-ripened banana Strained or clear juices Small amounts of soft cantaloupe or honeydew melon Cookies and other desserts without whole grains, dried fruit, berries, nuts, or coconut Sherbet and popsicles Serving suggestions include gelatins, milk shakes, frozen desserts, puddings, tapioca, cakes, and sauces. Avoid: All raw or dried fruits Berries Prune juice, prunes, and raisins Other foods Eat: Mayonnaise and mild salad dressings Margarine, butter, cream, and oils in small amounts Plain gravies Plain bouillon and broth Ketchup and mild mustard Spices, cooked herbs, and salt Sugar, honey, and syrup Clear jellies Hard candy and marshmallows Plain chocolate Avoid: Marmalade Pickles, olives, relish, and horseradish Popcorn Potato chips Liquids Keep in mind that low-fiber foods cause fewer bowel movements and smaller stools. You may need to drink extra fluids to help prevent constipation while you are on a low-fiber diet. Drink plenty of water unless your doctor tells you otherwise, and use juices and milk as noted above. Discharge Orders/Prescriptions Prescriptions: No Action levothyroxine 75 MCG tablet 75 mcg PO DAILY Patient Comments: PT STATES SHE TAKES 1 AND 1/2 TABLETS WHEN SHE TAKES THIS MEDICATION. omeprazole 20 MG capsule 20 mg PO DAILY Patient Comments: ACID REFLUX fluticasone propionate 1 SPRAY spray,suspension 2 spray intranasal DAILY PRN (Reason: nasal congestion) Patient Comments: NASAL CONGESTION cholecalciferol (vitamin D3) [Vitamin D3] 2,000 UNIT tablet 2,000 unit PO DAILY Patient Comments: SUPPLEMENT Eliquis DVT-PE Treat 30D Start 5 mg (74 tabs) tablets,dose pack 5 mg PO BID 30 Days Qty: 60 0RF trospium 20 mg tablet 20 mg PO BID venlafaxine 75 mg capsule,extended release 24hr 75 mg PO DAILY Referrals / Follow Up: Jessenia Spring MD [Primary Care Provider] -
[2024-08-03 13:56] VITALS: BP 119/79; PULSE 93; RESP 16; TEMP 36.8; O2SAT 100
--- NOTE | 2024-08-03 14:07 | DS.PCM_ITS ---
Providers Date of Admission: 07/30/24 Date of Discharge: 08/03/24 Primary Care Physician: Dr. Jessenia Spring MD Consultations 07/30/24 12:17 Consult: General Surgery Routine Consulting Provider: Jarad Matute Reason for Consult: abdominal pain, ? peritonitis EMERGENT Consult: No MD Notified: Yes Date Notified: 07/30/24 Time Notified: 11:44 Method of Notification: Text Reason For Visit: ACUTE ABDOMINAL PAIN Diagnosis Discharge Diagnosis (1) Constipation: Status: Acute Code(s): K59.00 - Constipation, unspecified (2) Abdominal pain: Status: Acute Code(s): R10.9 - Unspecified abdominal pain Medications at Discharge Home Medications cholecalciferol (vitamin D3) 50 mcg (2,000 unit) tablet (Vitamin D3) 2,000 unit PO DAILY 04/11/13 fluticasone propionate 50 mcg/actuation nasal spray,suspension 2 spray intranasal DAILY PRN nasal congestion 04/11/13 levothyroxine 75 mcg tablet 75 mcg PO DAILY 04/11/13 omeprazole 20 mg capsule,delayed release 20 mg PO DAILY 04/11/13 apixaban 5 mg (74 tabs) tablets in a dose pack (Eliquis DVT-PE Treat 30D Start) 5 mg PO BID 30 days #60 tabs 09/16/21 trospium 20 mg tablet 20 mg PO BID 07/30/24 venlafaxine 75 mg capsule,extended release 24 hr 75 mg PO DAILY 07/30/24 Hospital Course Operations None Procedures - (CT abdomen pelvis/abdominal x-ray x 2) Summary of Care Provided Minutes Spent on Discharge: 37 Hospital Course: Mrs. Alvarez is a 78-year-old white female who presented to the emergency department [facility] on 07/30/2024 with abdominal pain. She had associated nausea and vomiting for about 2 days prior to presentation. She had constipation for about 4 days prior to presentation and had a small bowel movement but had not had any bowel movement for about 2 days prior to presentation. She denied fever or chills, shortness of breath, cough palpitations or any other associated symptoms. Vital signs on presentation to the emergency department showed a temperature of 97.6, heart rate 114, respiratory rate was 22, blood pressure was 158/78 and pulse ox was 97% on room air. CBC on presentation showed a mild leukocytosis with a white count of 13.4 and a left shift with a 79.1% neutrophilia. She also had a monocytosis at 10.5%. This appears to be chronic. Chemistry panel was overall unremarkable. Glucose was 128. Lactic acid was 1.5. Liver functions were unremarkable. Lipase was normal at 21. TSH was 1.67. UA was not consistent with infection. Blood and urine cultures were sent were all negative prior to discharge. CT of the abdomen pelvis on presentation showed a small amount of free fluid in the pelvis in a postmenopausal female that was somewhat worried for peritonitis but no obvious etiology otherwise. She did appear to have a small diverticulum in the third portion of the small bowel. General surgery was consulted and she was admitted to floor, given antiemetics and IV fluids, and placed on IV antibiotics with cefepime due to potential peritonitis. General surgery was consulted to assist with management. General surgery felt that most of her symptoms were related to constipation and placed her on a bowel regimen. We did assess a TSH was noted and was normal. Given the possible area of thickening in the sigmoid colon noted on imaging throughout her hospitalization, a colonoscopy was recommended but plan for as an outpatient. Her leukocytosis resolved and antibiotics were able to be discontinued on 08/02/2024 as the colitis did not appear to be infectious and was thought to be related to her constipation and stasis in the colon. With time her bowels slowly picked up in stool output and she had several large bowel movements prior to discharge. Her abdominal pain improved significantly and she was able to be advanced to the point where she was tolerating a transitional diet well on 08/03/2024. General surgery recommended ongoing MiraLAX twice daily at discharge and follow up as an outpatient for a colonoscopy in 2 weeks and low fiber diet diet was recommend for the next 2 weeks. Pt was discharged in stable condition on 08/03/2024 to home. PCP f/u as needed was recommended. Discharge Diagnoses: Constipation Acute Anemia Leukocytosis Hypothyroidism GERD Urinary Incontinence H/O Breast Cancer H/O PE Depression Physical Exam Const alert, oriented x3, no apparent distress, average body habitus, no limitations, healthy appearing and well nourished Constitutional Narrative: Older, white female, sitting up in bed, watching TV, appears comfortable General Appearance: cooperative, comfortable, well kempt and well developed HEENT normocephalic, head/scalp atraumatic, hearing grossly normal bilaterally and moist oral mucous membranes HEENT Narrative: No thrush Eyes EOMs intact bilaterally and conjunctivae normal Eyes Narrative: no icterus Neck supple Neck Narrative: trachea midline Resp normal respiratory effort, normal air movement, no retractions, no use of accessory muscles and clear to auscultation bilaterally Auscultation: Negative for rales, rhonchi or wheezes Cardio regular rate, regular rhythm, S1 normal heart sound, S2 normal heart sound, no murmurs, no rub, no gallops and no clicks GI normal to inspection, nondistended, normoactive bowel sounds, soft to palpation and non-tender Extremity no clubbing, cyanosis or edema Extremity Narrative: 2+ pedal and radial pulses Skin skin turgor normal and no jaundice Neuro oriented x3, moves all extremities and no focal motor deficits Speech: speech normal Motor Exam: strength 5/5 throughout and general weakness Psych thought process normal, cooperative and affect normal Psych Narrative: eye contact is good and patient interacts appropriately Weight / BMI Weight Weight: 70.8 kg Body Mass Index (BMI) 25.9 ABG / Lab / Microbiology Data 08/03/24 05:15 08/03/24 05:15 Laboratory: Laboratory Results - last 24 hr 08/03/24 05:15: WBC 5.6, RBC 3.84 L, Hgb 11.7 L, Hct 34.4 L, MCV 89.6, MCH 30.5, MCHC 34.0, RDW Std Deviation 42.0, RDW Coeff of Mihaela 12.9, Plt Count 293, MPV 9.2, Immature Gran % (Auto) 0.500, Neut % (Auto) 59.0, Lymph % (Auto) 22.6, [place] % (Auto) 12.7 H, Eos % (Auto) 3.9, Baso % (Auto) 1.3 H, Absolute Neuts (auto) 3.3, Absolute Lymphs (auto) 1.26, Nucleated RBC % 0, Sodium 142, Potassium 3.4, Chloride 110 H, Carbon Dioxide 22.0, Anion Gap 10, BUN 2 L, Creatinine 0.55 L, Estim Creat Clear Calc 57.20, Est GFR (MDRD) Non-Af 94, BUN/Creatinine Ratio 4.3 L, Glucose 84, Calcium 8.3, Phosphorus 3.2, Magnesium 2.5 H, Total Bilirubin 0.27, AST 18, ALT 7, Alkaline Phosphatase 60, Total Protein 5.5 L, Albumin 3.2 L , Globulin 2.4, Albumin/Globulin Ratio 1.3, TSH 1.670 Microbiology: Microbiology 07/31/24 10:20 Urine, Clean Catch Urine Culture - Final Culture exhibits no growth. 07/30/24 11:18 Blood Culture (Wb) - Right Wrist Blood Culture - Preliminary No growth in 48 hours. 07/30/24 11:15 Blood Culture (Wb) - Left Wrist Blood Culture - Preliminary No growth in 48 hours. D/C Instructions Discharge Diet: - (low fiber diet. See below) DC O2, CPAP, BIPAP Needs Home O2 Discharge instructions: No Please Follow Up With: Jarad Matute MD When: 2 weeks. Please call [phone], option #2 to schedule an appointment Meaningful Use Info Meaningful Use Meaningful Use Diagnoses (Choose all that apply): None applicable Ischemic Stroke Statin Dosing Therapy Reference: STATIN DOSE THERAPY REFERENCE: * Patients > 75 years receive moderate or high dose statin therapy. * Patients 75 years or YOUNGER should receive HIGH intensity statin dose unless contraindicated. You will be required to document reason for non-treatment if statin daily dose does not meet guidelines. HIGH DOSE STATIN THERAPY DAILY Atorvastatin > than or = to 40 mg Rosuvastatin > than or = to 20 mg Amlodipine + Atorvastatin > than or = to 2.5/40 mg Ezetimibe + Simvastatin 10/80 mg Simvastatin 80mg Discharge Plan Admission Admit Date/Time: 07/30/24 11:42 Primary Reason for Your Visit: Abdominal pain Attending Provider: Mery Murry Primary Care Provider: Jessenia Spring Consulting Providers: Jarad Matute; Mae Trevizo Instructions Additional Instructions / Restrictions: Recommend 2 week follow-up with Dr. Matute in the office to schedule a colonoscopy. Please contact our office at [phone], option #2 to schedule an appointment. Recommend a capful of Miralax twice a day to assist with bowel movements and stay hydrated Below is an example of the recommended low fiber diet for the next 2 weeks. Once evaluated in the office, may discuss any further diet restrictions. What are low-fiber foods? If your doctor tells you to follow a low-fiber diet, here are low-fiber foods you can eat and higher-fiber foods you should avoid. Remember to always choose foods that you would normally eat. Do not try any foods that caused you discomfort or allergic reactions in the past. If you are on a ?low-residue diet,? your food choices are even more restricted than those listed below. Talk with your cancer care team or dietitian if you have questions about certain foods or amounts. Meat, fish, poultry, and protein Eat: Tender cuts of meat Ground meat Tofu Fish and shellfish Smooth peanut butter Eggs Bake, broil, or poach meats, and use mild seasonings. Try preparing meats as stews, roasts, meatloaves, casseroles, sandwiches, and soups using ingredients on the approved lists. Scramble, poach, or boil eggs; or make omelets, souffl?s, custard, puddings, and casseroles, using ingredients noted below. You might want to ask your doctor, nurse, or dietitian about other foods may be OK for you to eat, and find out when you can go back to your normal diet. Avoid: All beans, nuts, peas, lentils, and legumes Processed meats, hot dogs, sausage, and cold cuts Tough meats with gristle Dairy: Milk and cheese Eat: Only in small to medium amounts and only if they don?t cause problems for you Milk, chocolate milk, buttermilk, and milk drinks Yogurt without seeds or granola Sour cream Cheese Cottage cheese Custard or pudding Ice cream or frozen desserts (without nuts) Cream sauces, soups, and casseroles You can use these items in desserts, snacks, or breads. Bread, cereals, and grains Eat: White breads, waffles, [place] toast, plain white rolls, or white bread toast Pretzels Plain pasta or noodles White rice Crackers, zwieback, margaret, and matzoh (no cracked wheat or whole grains) Cereals without whole grains, added fiber, seeds, raisins, or other dried fruit Use white flour for baking and making sauces. Grains, such as white rice, Cream of Wheat, or grits, should be well-cooked. Include the above grains in casseroles, dumplings, souffl?s, cheese strata, kugels, and pudding. Avoid any food that contains: Brown or wild rice Whole grains, cracked grains, or whole wheat products Kasha (buckwheat) Cornbread or cornmeal Jalil crackers Bran Wheat germ Nuts Granola Coconut Dried fruit Seeds Vegetables and potatoes Eat: Tender, well-cooked fresh or canned vegetables without seeds, stems, or skins Cooked sweet or white potatoes without skins Strained vegetable juices without pulp or spices You can also eat these with cream sauces, or in soups, souffl?s, kugels, and casseroles. Avoid: All raw or steamed vegetables All types of beans Potatoes with skin Peas [place] Cabbage, broccoli, cauliflower, [place] sprouts, and greens Sauerkraut Onions Fruits and desserts Eat: Soft canned or cooked fruit without seeds or skins (small amounts) Small amounts of well-ripened banana Strained or clear juices Small amounts of soft cantaloupe or honeydew melon Cookies and other desserts without whole grains, dried fruit, berries, nuts, or coconut Sherbet and popsicles Serving suggestions include gelatins, milk shakes, frozen desserts, puddings, tapioca, cakes, and sauces. Avoid: All raw or dried fruits Berries Prune juice, prunes, and raisins Other foods Eat: Mayonnaise and mild salad dressings Margarine, butter, cream, and oils in small amounts Plain gravies Plain bouillon and broth Ketchup and mild mustard Spices, cooked herbs, and salt Sugar, honey, and syrup Clear jellies Hard candy and marshmallows Plain chocolate Avoid: Marmalade Pickles, olives, relish, and horseradish Popcorn Potato chips Liquids Keep in mind that low-fiber foods cause fewer bowel movements and smaller stools. You may need to drink extra fluids to help prevent constipation while you are on a low-fiber diet. Drink plenty of water unless your doctor tells you otherwise, and use juices and milk as noted above. Discharge Orders/Prescriptions Prescriptions: Continued levothyroxine 75 MCG tablet 75 mcg PO DAILY Patient Comments: PT STATES SHE TAKES 1 AND 1/2 TABLETS WHEN SHE TAKES THIS MEDICATION. 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
--- NOTE | 2024-08-03 14:21 | PHA.DC.MR.R ---
Pharmacy [place] Med Reconciliation Pharmacy Service has performed discharge medication reconciliation for this patient. The patient's discharge medication list was reviewed for discrepancies and discrepancies were resolved. Medications at Discharge Home Medications cholecalciferol (vitamin D3) 50 mcg (2,000 unit) tablet (Vitamin D3) 2,000 unit PO DAILY 04/11/13 fluticasone propionate 50 mcg/actuation nasal spray,suspension 2 spray intranasal DAILY PRN nasal congestion 04/11/13 levothyroxine 75 mcg tablet 75 mcg PO DAILY 04/11/13 omeprazole 20 mg capsule,delayed release 20 mg PO DAILY 04/11/13 apixaban 5 mg (74 tabs) tablets in a dose pack ([employer] DVT-PE Treat 30D Start) 5 mg PO BID 30 days #60 tabs 09/16/21 trospium 20 mg tablet 20 mg PO BID 07/30/24 venlafaxine 75 mg capsule,extended release 24 hr 75 mg PO DAILY 07/30/24
== END 2024-08-03 15:30 | disposition home or self-care (01) | DRG 392 ==
LOC: ED 11:39 → MS3 11:49
PROVIDERS: Admitting Provider Student in an Organized Health Care Education/Training Program; Emergency Provider Emergency Medicine; PCP Internal Medicine; Visit Provider Internal Medicine
DX: K59.00 Constipation, unspecified (principal); D64.9 Anemia, unspecified; E03.9 Hypothyroidism, unspecified; F32.A Depression, unspecified; D72.829 Elevated white blood cell count, unspecified; K21.9 Gastro-esophageal reflux disease without esophagitis; E78.00 Pure hypercholesterolemia, unspecified; R10.84 Generalized abdominal pain; Z78.0 Asymptomatic menopausal state; Z79.890 Hormone replacement therapy; Z90.710 Acquired absence of both cervix and uterus; Z87.891 Personal history of nicotine dependence; Z79.01 Long term (current) use of anticoagulants; R32 Unspecified urinary incontinence; Z86.711 Personal history of pulmonary embolism; Z85.3 Personal history of malignant neoplasm of breast
CPT/HCPCS: 36415; 74019; 74177; 80048; 80053; 81001; 83605; 83690; 83735; 84100; 84443; 85025; 87040; 87086; 99284; Q9967; A4216; J2405

== ENCOUNTER 2024-10-03 07:57 | Day surgery (SDC) | payer MEDICARE, OTHER, SELFPAY ==
[2024-10-03] VITALS (8 sets, daily range): BP systolic 97–148; BP diastolic 58–83; PULSE 94–100; RESP 14–18; TEMP 36.5–37.2; O2SAT 94–98; BMI 25.1
[2024-10-03] MEDS: Lactated Ringers 1,000 ML 15 ML IV (07:15)
== END 2024-10-03 11:06 | disposition home or self-care (01) ==
LOC: EN 07:59 → AC 08:00
PROVIDERS: PCP Internal Medicine; Referring Provider Internal Medicine; Visit Provider Surgery
PROC: 0DJD8ZZ Inspection of Lower Intestinal Tract, Via Natural or Artificial Opening Endoscopic (ICD-10-PCS; CPT 45378; principal; 2024-10-03 08:55)
DX: R10.9 Unspecified abdominal pain (principal); K64.8 Other hemorrhoids; K64.4 Residual hemorrhoidal skin tags; E78.00 Pure hypercholesterolemia, unspecified; Q43.8 Other specified congenital malformations of intestine; Z87.891 Personal history of nicotine dependence; Z79.899 Other long term (current) drug therapy; Z79.01 Long term (current) use of anticoagulants
CPT/HCPCS: 45378; J2405